=== PATIENT | female | born 1960 | race Caucasian/White ===

== ENCOUNTER 2019-07-09 12:08 | Outpatient (CLI) | payer OTHER, SELFPAY ==
--- NOTE | ~2019-07-09 | MM_ITS ---
EXAMINATION: MM screening [facility] BI w anita HISTORY: Screening mammogram TECHNIQUE: Craniocaudal and mediolateral oblique 3-D tomosynthesis images were obtained and synthetic 2-D images were generated. CAD analysis was submitted and interpreted. COMPARISON: 04/04/2018, 12/10/2016, 01/24/2015 BREAST PARENCHYMAL COMPOSITION: There are scattered areas of fibroglandular density. FINDINGS: Focal asymmetry in the anterior third of the left breast is stable appearance on multiple p rior examinations. There is no evidence of suspicious mass, calcification, or architectural distortio n to suggest malignancy in either breast. There has been no suspicious interval change. IMPRESSION: 1. No mammographic evidence of malignancy. 2. Recommend routine screening mammography in one year. BI-RADS Category 2: Benign finding(s). Reviewed, dictated and finalized at location A. SEWER
== END 2019-07-09 12:09 | disposition home or self-care (01) ==
PROVIDERS: PCP Internal Medicine; Visit Provider Internal Medicine
DX: Z12.31 Encounter for screening mammogram for malignant neoplasm of breast (principal); R01.1 Cardiac murmur, unspecified
CPT/HCPCS: 77063; 77067; 93306

== ENCOUNTER 2019-11-16 16:14 | Outpatient (CLI) | payer OTHER, SELFPAY ==
--- NOTE | ~2019-11-16 | XR_ITS ---
EXAMINATION: XR chest 2V DATE: 11/16/2019 16:31 INDICATION: Clavicular lymphadenopathy TECHNIQUE: frontal and lateral views of the chest were obtained. COMPARISON: Chest radiograph dated 12/16/2017 FINDINGS: The lungs are clear with no focal airspace opacities, pulmonary edema, pleural effusion or pneumothor ax. The cardiomediastinal silhouette is normal. Mild to moderate thoracic and moderate to severe lumb ar spondylosis. There are bridging osteophytes at multiple levels in the spine, consistent with diffu se idiopathic skeletal hyperostosis (DISH). IMPRESSION: 1. No acute cardiopulmonary disease. Reviewed, dictated and finalized at location A.
[2019-11-16 16:29] LABS: Basophils Absolute Auto 0.05 K/mm3 (0.00-0.10); Basophils Percent Auto 0.6 % (0.0-1.0); Eosinophils Percent Auto 2.5 % (1.0-6.0); Hematocrit 41.5 % (35.0-49.0); Hemoglobin 13.8 g/dL (12.0-15.0); Immature Granulocyte Absolute 0.02 K/mm3 (0.00-0.00); Immature Granulocyte Percent A 0.3 % (0.0-0.0); Lymphocytes Absolute Auto 2.87 K/mm3 (1.10-4.50); Lymphocytes Percent Auto 36.4 % (18.0-42.0); Mean Corpuscular HGB Conc 33.3 g/dL (32.0-36.0); Mean Corpuscular Volume 81.1 fL (78.0-102.0); Monocytes Absolute Auto 0.59 K/mm3 (0.10-0.90); Monocytes Percent Auto 7.5 % (2.0-11.0); Neutrophils Absolute Auto 4.2 K/mm3 (1.7-7.2); Neutrophils Percent Auto 52.7 % (50.0-70.0); Platelet Count Result 339 K/mm3 (150-420); Red Blood Count 5.12 M/mm3 (4.20-5.40); Red Cell Distribution Width 13.7 % (11.6-14.4); White Blood Count 7.9 K/mm3 (4.8-10.8)
[2019-11-16 17:26] LABS: Alanine Aminotransferase 28 U/L (14-59); Alkaline Phosphatase 71 U/L (46-116); Anion Gap 10.2 mmol/L (7-16); Aspartate Amino Transferase 21 U/L (15-37); Bilirubin,Total 0.4 mg/dL (0.00-1.00); Blood Urea Nitrogen 13 mg/dL (7-18); Calcium 9.5 mg/dL (8.5-10.1); Carbon Dioxide 34 mmol/L (21-32); Chloride 96 mmol/L (98-108); Estimated Glomerular Filt Rate > 60; Free T4 Free Thyroxine 1.54 ng/dL (0.76-1.46); Glucose 99 mg/dL (70-99); Lactate Dehydrogenase 235 U/L (81-234); Osmolality Calculated 282 mOsm/kg (285-295); Potassium 4.2 mmol/L (3.5-5.1); Sodium 136 mmol/L (136-145); Thyroid Stimulating Hormone 3.85 uIU/mL (0.36-3.74); Total Protein 7.4 g/dL (6.4-8.2)
[2019-11-16 17:27] LABS: Erythrocyte Sedimentation Rate 18 mm/hr (0-20)
[2019-11-16 17:28] LABS: CRP < 0.2 mg/dL (0.0-0.9)
== END 2019-11-16 16:15 | disposition home or self-care (01) ==
PROVIDERS: PCP Internal Medicine; Visit Provider Internal Medicine
DX: I88.9 Nonspecific lymphadenitis, unspecified (principal); L03.811 Cellulitis of head [any part, except face]; E03.9 Hypothyroidism, unspecified
CPT/HCPCS: 36415; 71046; 80053; 83615; 84439; 84443; 85025; 85652; 86140

== ENCOUNTER 2019-11-18 10:51 | Outpatient (CLI) | payer OTHER, SELFPAY ==
--- NOTE | ~2019-11-18 | US_ITS ---
EXAMINATION: US soft tissue head and neck DATE: 11/18/2019 11:52 INDICATION: Enlarged lymph nodes nodes at the left neck TECHNIQUE: Multiple grayscale and Doppler ultrasound images of the region of concern at the left neck were obtained. COMPARISON: None FINDINGS: There are multiple prominent hypoechoic left posterior cervical triangle lymph nodes with central fat ty leti at the mid, lateral to posterior left neck. The 3 largest measures 1.9 x 0.5 x 1.3 cm, 1.4 x 0.6 cm and 1.4 x 0.7 cm. IMPRESSION: 1. Mildly prominent but still normal-sized likely reactive lymph nodes in the left posterior cervical triangle. Reviewed, dictated and finalized at location D. IMPRESSION: 1. Mildly prominent but still normal-sized likely reactive lymph nodes in the l eft posterior cervical triangle.
== END 2019-11-18 10:52 | disposition home or self-care (01) ==
PROVIDERS: PCP Internal Medicine; Visit Provider Internal Medicine
DX: I88.9 Nonspecific lymphadenitis, unspecified (principal); E03.9 Hypothyroidism, unspecified; L03.811 Cellulitis of head [any part, except face]
CPT/HCPCS: 76536

== ENCOUNTER 2020-04-11 09:09 | Outpatient (CLI) | payer MEDICARE, SELFPAY ==
[2020-04-11 09:31] LABS: Basophils Absolute Auto 0.05 K/mm3 (0.00-0.10); Basophils Percent Auto 0.8 % (0.0-1.0); Eosinophils Absolute Auto 0.17 K/mm3 (0.02-0.50); Eosinophils Percent Auto 2.7 % (1.0-6.0); Hematocrit 43.6 % (35.0-49.0); Hemoglobin 14.2 g/dL (12.0-15.0); Immature Granulocyte Absolute 0.02 K/mm3 (0.00-0.00); Immature Granulocyte Percent A 0.3 % (0.0-0.0); Lymphocytes Absolute Auto 2.09 K/mm3 (1.10-4.50); Lymphocytes Percent Auto 33.3 % (18.0-42.0); Mean Corpuscular HGB Conc 32.6 g/dL (32.0-36.0); Mean Corpuscular Hemoglobin 27.3 pg (27.0-31.0); Mean Corpuscular Volume 83.7 fL (78.0-102.0); Monocytes Absolute Auto 0.53 K/mm3 (0.10-0.90); Monocytes Percent Auto 8.5 % (2.0-11.0); Neutrophils Absolute Auto 3.4 K/mm3 (1.7-7.2); Neutrophils Percent Auto 54.4 % (50.0-70.0); Platelet Count Result 364 K/mm3 (150-420); Red Blood Count 5.21 M/mm3 (4.20-5.40); Red Cell Distribution Width 13.2 % (11.6-14.4); White Blood Count 6.3 K/mm3 (4.8-10.8)
[2020-04-11 09:32] LABS: Add Urine Microscopic? NO; Appearance Urine Clear (Clear); Bilirubin Urine Negative (Negative); Blood Urine Negative (Negative); Color Urine Yellow (Yellow); Glucose Urine UA Negative (Negative); Ketones Urine Negative (Negative); Leukocyte Esterase Ur Negative LEU/UL (Negative); Nitrate Urine Negative (Negative); Protein Urine Negative (Negative); Urobilinogen Urine 0.2 mg/dL (0.2-1.0); pH Urine 7.5 (5.0-8.0)
[2020-04-11 10:04] LABS: Hemoglobin A1C 6.1 % (<5.7)
[2020-04-11 10:41] LABS: Alanine Aminotransferase 33 U/L (14-59); Alkaline Phosphatase 72 U/L (46-116); Anion Gap 8 mmol/L (8-16); Aspartate Amino Transferase 22 U/L (15-37); Bilirubin,Total 0.5 mg/dL (0.00-1.00); Blood Urea Nitrogen 18 mg/dL (7-18); Calcium 9.5 mg/dL (8.5-10.1); Carbon Dioxide 33 mmol/L (21-32); Chloride 99 mmol/L (98-108); Cholesterol 221 mg/dL (0-200); Creatine Kinase 126 U/L (26-192); Estimated Glomerular Filt Rate > 60; Ferritin 53 ng/mL (8-252); Free T4 Free Thyroxine 0.93 ng/dL (0.76-1.46); Glucose 105 mg/dL (70-99); HDL Direct 39 mg/dL (40-60); Iron 72 ug/dL (50-170); LDL Cholesterol Calculated 130 mg/dL (<130); Osmolality Calculated 291 mOsm/kg (285-295); Percent Iron Saturation 18 % (12-57); Potassium 4.3 mmol/L (3.5-5.1); Sodium 140 mmol/L (136-145); Thyroid Stimulating Hormone 4.13 uIU/mL (0.36-3.74); Total Protein 7.4 g/dL (6.4-8.2); Triglycerides 262 mg/dL (0-150)
== END 2020-04-11 09:10 | disposition home or self-care (01) ==
LOC: CHSLAB 09:12
PROVIDERS: PCP Internal Medicine; Visit Provider Internal Medicine
DX: R73.01 Impaired fasting glucose (principal); D50.9 Iron deficiency anemia, unspecified; E03.9 Hypothyroidism, unspecified; I10 Essential (primary) hypertension
CPT/HCPCS: 36415; 80053; 80061; 81003; 82550; 82728; 83036; 83540; 83550; 84439; 84443; 85025

== ENCOUNTER 2020-04-20 16:11 | Outpatient (CLI) | payer MEDICARE, SELFPAY ==
--- NOTE | ~2020-04-20 | XR_ITS ---
EXAMINATION: XR hip LT min 2V DATE: 04/20/2020 16:36 INDICATION: Left hip pain TECHNIQUE: Anteroposterior and frog-leg lateral views of the left hip were obtained. COMPARISON: 02/18/2017 FINDINGS: Alignment is normal. No fracture or suspected avascular necrosis. Joint spaces are normal. Soft tissu es are unremarkable. IMPRESSION: 1. Negative left hip radiographs. Reviewed, dictated and finalized at location H. RAFT METALSMITH
== END 2020-04-20 16:12 | disposition home or self-care (01) ==
LOC: CHSLAB 16:13
PROVIDERS: PCP Internal Medicine; Visit Provider Internal Medicine
DX: M25.552 Pain in left hip (principal)
CPT/HCPCS: 73502

== ENCOUNTER 2020-04-23 07:38 | Outpatient (CLI) | payer MEDICARE, OTHER, SELFPAY ==
--- NOTE | ~2020-04-23 | MR_ITS ---
EXAMINATION: MR hip LT wo con DATE: 04/23/2020 08:45 INDICATION: Left hip pain TECHNIQUE: Magnetic resonance imaging (MRI) of the left hip was performed without intravenous contra st. Sequences included full-field axial PD-weighted FS FSE and T1-weighted FSE, coronal of the pelvis with PD-weighted FS FSE, small field of view of the left hip with axial PD-weighted FS FSE, sagitta l PD-weighted FS FSE and coronal PD weighted FS FSE. Additional radial T1-weighted FGR oriented ortho gonal to the acetabular rim were obtained for evaluation of the labrum. COMPARISON: None FINDINGS: Bones/labrum/cartilage: Prominent metallic magnetic field artifact at the left hip and proximal femur consistent with a right total hip arthroplasty. This obscures or distorts the immediately surrounding bone and soft tissues. Mild lumbar dextrocurvature with moderate to severe spondylosis. Normal marrow signal throughout wit h no reactive edema, fracture or pathologic marrow replacing process. There is severe degenerative te aring of the anterosuperior the superolateral left acetabular labrum which appears thickened with pro minent amorphous increased signal. Left hip joint space is relatively preserved however there is a re gion of chondral fissuring with mild underlying subarticular cystic change at the anterosuperior left acetabulum. Fluid: No left hip joint effusion or other abnormal fluid collections. Soft tissues: Normal and symmetric muscle bulk and signal in the pelvis and visualized proximal thighs. There is sc arring posterolateral to the right hip likely related to placement of the arthroplasty. There is ananda a surrounding the partial tear without significant retraction of the pubic origin of the left abducto r longus tendon. The left iliopsoas tendon is normal. The right iliopsoas tendon is obscured by artif act. Minimal fluid at the left ischial tuberosity origin of the normal proximal left hamstring tendon s consistent with mild ischial bursitis. The right proximal hamstring tendons also appear normal asse ssment for fluid signal is limited by the adjacent artifact. Mild tendinopathy without discrete tear at the greater trochanteric insertion of the left gluteus minimus and medius tendons with minimal ass ociated bursitis. Small fat-containing umbilical hernia. Limited evaluation of visceral organs of the pelvis is unremarkable. No pathologically enlarged pelvic/inguinal lymphadenopathy. IMPRESSION: 1. Partial tear at the pubic origin of the left abductor longus muscle with surrounding edema. 2. 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 3. Right total hip arthroplasty which obscures the region of the right hip and proximal femur. 4. Mild left ischial bursitis. 5. Minimal bursitis at the insertion of the left gluteus medius and minimus tendons both which demons trate mild tendinopathy without discrete tear. 6. Mild lumbar dextroscoliosis with severe spondylosis. Reviewed, dictated and finalized at location H. ASTIC TEACHER IMPRESSION: 1. Partial tear at the pubic origin of the left abductor longus muscle with geovanna rounding edema. 2. 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 3. Right total hip arthroplasty which obscures the region of the right hip and proximal femur. 4. Mild left ischial bursitis. 5. Minimal bursitis at the insertion of the left gluteus medius and minimus ten dons both which demonstrate mild tendinopathy without discrete tear. 6. Mild lumbar dextroscoliosis with severe spondylosis.
== END 2020-04-23 07:39 | disposition home or self-care (01) ==
LOC: CHSIMG 07:40
PROVIDERS: PCP Internal Medicine; Visit Provider Internal Medicine
DX: M25.552 Pain in left hip (principal)
CPT/HCPCS: 73721

== ENCOUNTER 2020-10-19 08:48 | Outpatient (CLI) | payer MEDICARE, SELFPAY ==
[2020-10-19 09:00] LABS: Basophils Absolute Auto 0.09 K/mm3 (0.00-0.10); Basophils Percent Auto 1.2 % (0.0-1.0); Eosinophils Absolute Auto 0.22 K/mm3 (0.02-0.50); Eosinophils Percent Auto 2.9 % (1.0-6.0); Hemoglobin 14.4 g/dL (12.0-15.0); Immature Granulocyte Absolute 0.02 K/mm3 (0.00-0.00); Immature Granulocyte Percent A 0.3 % (0.0-0.0); Lymphocytes Absolute Auto 2.65 K/mm3 (1.10-4.50); Lymphocytes Percent Auto 35.3 % (18.0-42.0); Mean Corpuscular HGB Conc 33.5 g/dL (32.0-36.0); Mean Corpuscular Hemoglobin 27.3 pg (27.0-31.0); Mean Corpuscular Volume 81.4 fL (78.0-102.0); Mean Platelet Volume 8.5 fl (9.2-11.8); Monocytes Absolute Auto 0.67 K/mm3 (0.10-0.90); Monocytes Percent Auto 8.9 % (2.0-11.0); Neutrophils Absolute Auto 3.9 K/mm3 (1.7-7.2); Neutrophils Percent Auto 51.4 % (50.0-70.0); Platelet Count Result 346 K/mm3 (150-420); Red Blood Count 5.28 M/mm3 (4.20-5.40); Red Cell Distribution Width 13.5 % (11.6-14.4); White Blood Count 7.5 K/mm3 (4.8-10.8)
[2020-10-19 09:14] LABS: Add Urine Microscopic? NO; Appearance Urine Clear (Clear); Bilirubin Urine Negative (Negative); Blood Urine Negative (Negative); Color Urine Yellow (Yellow); Glucose Urine UA Negative (Negative); Ketones Urine Negative (Negative); Leukocyte Esterase Ur Negative (Negative); Nitrate Urine Negative (Negative); Protein Urine Negative (Negative); Urobilinogen Urine 0.2 mg/dL (0.2-1.0)
[2020-10-19 09:23] LABS: Hemoglobin A1C 6.1 % (<5.7)
[2020-10-19 09:34] LABS: Creatinine Urine 241.63 mg/dL (40-278); MALB Creatinine Ratio 5.3 mg/g (0-30); Microalbumin Urine Random < 13.0 mg/L
[2020-10-19 10:10] LABS: Alanine Aminotransferase 34 U/L (14-59); Albumin Level 3.9 g/dL (3.4-5.0); Alkaline Phosphatase 75 U/L (46-116); Anion Gap 7 mmol/L (8-16); Aspartate Amino Transferase 18 U/L (15-37); Bilirubin,Total 0.6 mg/dL (0.00-1.00); Blood Urea Nitrogen 15 mg/dL (7-18); Calcium 9.8 mg/dL (8.5-10.1); Carbon Dioxide 33 mmol/L (21-32); Chloride 98 mmol/L (98-108); Cholesterol 225 mg/dL (0-200); Creatine Kinase 118 U/L (26-192); Estimated Glomerular Filt Rate > 60; Ferritin 81 ng/mL (8-252); Free T3 2.95 pg/mL (2.18-3.98); Free T4 Free Thyroxine 1.07 ng/dL (0.76-1.46); Glucose 123 mg/dL (70-99); HDL Direct 40 mg/dL (40-60); Iron 62 ug/dL (50-170); LDL Cholesterol Calculated 125 mg/dL (<130); Osmolality Calculated 287 mOsm/kg (285-295); Percent Iron Saturation 16 % (12-57); Potassium 4.2 mmol/L (3.5-5.1); Sodium 138 mmol/L (136-145); Thyroid Stimulating Hormone 2.05 uIU/mL (0.36-3.74); Total Protein 7.5 g/dL (6.4-8.2); Triglycerides 302 mg/dL (0-150)
== END 2020-10-19 08:49 | disposition home or self-care (01) ==
LOC: CHSLAB 08:50
PROVIDERS: PCP Internal Medicine; Visit Provider Internal Medicine
DX: E03.4 Atrophy of thyroid (acquired) (principal); I10 Essential (primary) hypertension; E78.2 Mixed hyperlipidemia; R73.01 Impaired fasting glucose; D50.9 Iron deficiency anemia, unspecified
CPT/HCPCS: 36415; 80053; 80061; 81003; 82043; 82550; 82728; 83036; 83540; 83550; 84439; 84443; 84481; 85025

== ENCOUNTER 2021-05-04 09:10 | Outpatient (CLI) | payer MEDICARE, SELFPAY ==
[2021-05-04 09:31] LABS: Basophils Absolute Auto 0.08 K/mm3 (0.00-0.10); Basophils Percent Auto 1.2 % (0.0-1.0); Eosinophils Absolute Auto 0.22 K/mm3 (0.02-0.50); Eosinophils Percent Auto 3.3 % (1.0-6.0); Hematocrit 43.2 % (35.0-49.0); Hemoglobin 14.1 g/dL (12.0-15.0); Immature Granulocyte Absolute 0.02 K/mm3 (0.00-0.00); Immature Granulocyte Percent A 0.3 % (0.0-0.0); Lymphocytes Absolute Auto 2.15 K/mm3 (1.10-4.50); Lymphocytes Percent Auto 32.6 % (18.0-42.0); Mean Corpuscular HGB Conc 32.6 g/dL (32.0-36.0); Mean Corpuscular Hemoglobin 27.2 pg (27.0-31.0); Mean Corpuscular Volume 83.2 fL (78.0-102.0); Mean Platelet Volume 8.9 fl (9.2-11.8); Monocytes Absolute Auto 0.49 K/mm3 (0.10-0.90); Monocytes Percent Auto 7.4 % (2.0-11.0); Neutrophils Absolute Auto 3.6 K/mm3 (1.7-7.2); Neutrophils Percent Auto 55.2 % (50.0-70.0); Platelet Count Result 369 K/mm3 (150-420); Red Blood Count 5.19 M/mm3 (4.20-5.40); Red Cell Distribution Width 13.3 % (11.6-14.4); White Blood Count 6.6 K/mm3 (4.8-10.8)
[2021-05-04 10:08] LABS: Add Urine Microscopic? NO; Appearance Urine Clear (Clear); Bilirubin Urine Negative (Negative); Blood Urine Negative (Negative); Color Urine Yellow (Yellow); Glucose Urine UA Negative (Negative); Ketones Urine Negative (Negative); Leukocyte Esterase Ur Negative (Negative); Nitrate Urine Negative (Negative); Protein Urine Negative (Negative); Specific Grav Ur 1.015 (1.010-1.020); Urobilinogen Urine 0.2 mg/dL (0.2-1.0)
[2021-05-04 10:11] LABS: Hemoglobin A1C 6.5 % (<5.7)
[2021-05-04 10:40] LABS: Alanine Aminotransferase 36 U/L (14-59); Albumin Level 3.9 g/dL (3.4-5.0); Alkaline Phosphatase 78 U/L (46-116); Anion Gap 9 mmol/L (8-16); Aspartate Amino Transferase 16 U/L (15-37); Bilirubin,Total 0.4 mg/dL (0.00-1.00); Blood Urea Nitrogen 17 mg/dL (7-18); Calcium 9.8 mg/dL (8.5-10.1); Carbon Dioxide 31 mmol/L (21-32); Chloride 99 mmol/L (98-108); Cholesterol 224 mg/dL (0-200); Creatine Kinase 104 U/L (26-192); Estimated Glomerular Filt Rate > 60; Free T3 3.07 pg/mL (2.18-3.98); Free T4 Free Thyroxine 0.92 ng/dL (0.76-1.46); Glucose 123 mg/dL (70-99); HDL Direct 36 mg/dL (40-60); LDL Cholesterol Calculated 129 mg/dL (<130); Osmolality Calculated 290 mOsm/kg (285-295); Potassium 4.6 mmol/L (3.5-5.1); Sodium 139 mmol/L (136-145); Thyroid Stimulating Hormone 3.48 uIU/mL (0.36-3.74); Total Protein 7.5 g/dL (6.4-8.2); Triglycerides 297 mg/dL (0-150)
== END 2021-05-04 09:11 | disposition home or self-care (01) ==
LOC: CHSLAB 09:12
PROVIDERS: PCP Internal Medicine; Visit Provider Internal Medicine
DX: E03.4 Atrophy of thyroid (acquired) (principal); E78.2 Mixed hyperlipidemia; R73.01 Impaired fasting glucose; M25.50 Pain in unspecified joint; I10 Essential (primary) hypertension
CPT/HCPCS: 36415; 80053; 80061; 81003; 82550; 83036; 84439; 84443; 84481; 85025

== ENCOUNTER 2021-06-20 08:27 | Outpatient (CLI) | payer MEDICARE, SELFPAY ==
--- NOTE | ~2021-06-20 | US_ITS ---
EXAMINATION: US soft tissue abdomen DATE: 06/20/2021 09:10 INDICATION: Umbilical hernia/mass. TECHNIQUE: Multiple grayscale and Doppler ultrasound images of the abdominal region of concern at the umbilicus were obtained. COMPARISON: None FINDINGS: Small umbilical hernia with hernia sac measuring 3.5 x 3.1 x 1.5 cm and which extends through a 1.5 c m diameter orifice. No evident peristalsis or gas within the hernia sac to suggest herniated bowel. IMPRESSION: 1. Small likely fat-containing umbilical hernia with no evident herniated bowel. Reviewed, dictated and finalized at location A. GATOR HUNTER IMPRESSION: 1. Small likely fat-containing umbilical hernia with no evident herniated bowel .
--- NOTE | ~2021-06-20 | MM_ITS ---
EXAMINATION: MM screening [facility] BI w [facility] HISTORY: Screening TECHNIQUE: Craniocaudal and mediolateral oblique 3-D tomosynthesis images were obtained and synthetic 2-D images were generated. CAD analysis was submitted and interpreted. COMPARISON: Comparison to multiple prior studies sequentially, with oldest reviewed study dated 12/2011. BREAST PARENCHYMAL COMPOSITION: Breast composed of scattered areas of fibroglandular density. FINDINGS: There is possible architectural distortion in the subareolar location of the left breast. T he right breast is stable without evidence for malignancy. IMPRESSION: 1. Possible architectural distortion subareolar location of the left breast. 2. Additional mammographic views and possible breast ultrasound are recommended. BI-RADS Category 0: Incomplete: Needs additional imaging evaluation. Reviewed, dictated and finalized at location A. E TOOLSETTER IMPRESSION: 1. Possible architectural distortion subareolar location of the left breast. 2. Additional mammographic views and possible breast ultrasound are recommended . BI-RADS Category 0: Incomplete: Needs additional imaging evaluation.
== END 2021-06-20 08:28 | disposition home or self-care (01) ==
LOC: CHSIMG 08:30
PROVIDERS: PCP Internal Medicine; Visit Provider Nurse Practitioner Family
DX: K42.9 Umbilical hernia without obstruction or gangrene (principal); R19.05 Periumbilic swelling, mass or lump; Z12.31 Encounter for screening mammogram for malignant neoplasm of breast
CPT/HCPCS: 76705; 77063; 77067

== ENCOUNTER 2021-06-26 09:55 | Outpatient (CLI) | payer MEDICARE, SELFPAY ==
--- NOTE | ~2021-06-26 | MMUS_ITS ---
EXAMINATION: MM diagnostic [facility] LT w anita, US breast LT limited HISTORY: Possible architectural distortion of the left breast on screening mammogram TECHNIQUE: Additional 3-D tomosynthesis images of the left breast were performed and synthetic 2-D im ages were generated. CAD analysis was submitted and interpreted. High resolution limited left breast ultrasound was performed. COMPARISON: Prior mammograms dating back to 01/24/2015 BREAST PARENCHYMAL COMPOSITION: There are scattered areas of fibroglandular density. FINDINGS: MAMMOGRAPHIC FINDINGS: There is a return to baseline fibroglandular appearance with spot compression of the left breast in t he area questioned on screening mammogram. No suspicious mass, calcification, or architectural distor tion are identified. ULTRASOUND: There is no evidence of focal abnormal solid or cystic mass in the vicinity of the mammographic findi ng in question. IMPRESSION: 1. No mammographic or sonographic evidence of malignancy. 2. Recommend routine screening mammography in one year. BI-RADS Category 1: Negative Reviewed, dictated and finalized at location A. ENT MINISTRY PASTOR IMPRESSION: 1. No mammographic or sonographic evidence of malignancy. 2. Recommend routine screening mammography in one year. BI-RADS Category 1: Negative
== END 2021-06-26 09:56 | disposition home or self-care (01) ==
LOC: CHSIMG 09:57
PROVIDERS: PCP Internal Medicine; Visit Provider Internal Medicine
DX: R92.8 Other abnormal and inconclusive findings on diagnostic imaging of breast (principal)
CPT/HCPCS: 76642; 77061; 77065; G0279

== ENCOUNTER 2021-07-03 11:48 | Outpatient (CLI) | payer MEDICARE, SELFPAY ==
[2021-07-03 12:34] LABS: SARS-CoV-2 Ag Negative (Negative)
[2021-07-03 13:15] LABS: SARS-CoV-2 RNA PCR Positive (Negative)
== END 2021-07-03 11:49 | disposition home or self-care (01) ==
LOC: CHSLAB 11:51
PROVIDERS: PCP Internal Medicine; Visit Provider Nurse Practitioner Family
DX: U07.1 COVID-19 (principal); J06.9 Acute upper respiratory infection, unspecified; J02.9 Acute pharyngitis, unspecified
CPT/HCPCS: 87426; C9803; U0003; U0005

== ENCOUNTER 2021-11-29 08:31 | Outpatient (CLI) | payer MEDICARE, SELFPAY ==
[2021-11-29 08:49] LABS: Basophils Absolute Auto 0.08 K/mm3 (0.00-0.10); Basophils Percent Auto 1.1 % (0.0-1.0); Eosinophils Absolute Auto 0.24 K/mm3 (0.02-0.50); Eosinophils Percent Auto 3.4 % (1.0-6.0); Hematocrit 42.3 % (35.0-49.0); Hemoglobin 13.9 g/dL (12.0-15.0); Immature Granulocyte Absolute 0.01 K/mm3 (0.00-0.00); Immature Granulocyte Percent A 0.1 % (0.0-0.0); Lymphocytes Percent Auto 38.2 % (18.0-42.0); Mean Corpuscular HGB Conc 32.9 g/dL (32.0-36.0); Mean Corpuscular Hemoglobin 27.7 pg (27.0-31.0); Mean Corpuscular Volume 84.4 fL (78.0-102.0); Mean Platelet Volume 8.6 fl (9.2-11.8); Monocytes Absolute Auto 0.54 K/mm3 (0.10-0.90); Monocytes Percent Auto 7.6 % (2.0-11.0); Neutrophils Absolute Auto 3.5 K/mm3 (1.7-7.2); Neutrophils Percent Auto 49.6 % (50.0-70.0); Platelet Count Result 377 K/mm3 (150-420); Red Blood Count 5.01 M/mm3 (4.20-5.40); Red Cell Distribution Width 12.9 % (11.6-14.4); White Blood Count 7.1 K/mm3 (4.8-10.8)
[2021-11-29 08:51] LABS: Add Urine Microscopic? NO; Appearance Urine Clear (Clear); Bilirubin Urine Negative (Negative); Blood Urine Negative (Negative); Color Urine Yellow (Yellow); Glucose Urine UA Negative (Negative); Ketones Urine Negative (Negative); Leukocyte Esterase Ur Negative (Negative); Nitrate Urine Negative (Negative); Protein Urine Negative (Negative); Urobilinogen Urine 0.2 mg/dL (0.2-1.0)
[2021-11-29 09:32] LABS: Hemoglobin A1C 6.2 % (<5.7)
[2021-11-29 09:33] LABS: Creatinine Urine 166.71 mg/dL (40-278); MALB Creatinine Ratio 7.7 mg/g (0-30); Microalbumin Urine Random < 13.0 mg/L
[2021-11-29 09:46] LABS: Alanine Aminotransferase 29 U/L (14-59); Albumin Level 3.9 g/dL (3.4-5.0); Alkaline Phosphatase 82 U/L (46-116); Anion Gap 8 mmol/L (8-16); Aspartate Amino Transferase 15 U/L (15-37); Bilirubin,Total 0.5 mg/dL (0.00-1.00); Blood Urea Nitrogen 16 mg/dL (7-18); Calcium 9.3 mg/dL (8.5-10.1); Carbon Dioxide 32 mmol/L (21-32); Chloride 98 mmol/L (98-108); Cholesterol 197 mg/dL (0-200); Creatine Kinase 93 U/L (26-192); Estimated Glomerular Filt Rate 60; Free T3 2.82 pg/mL (2.18-3.98); Free T4 Free Thyroxine 1.12 ng/dL (0.76-1.46); Glucose 133 mg/dL (70-99); HDL Direct 43 mg/dL (40-60); LDL Cholesterol Calculated 102 mg/dL (<130); Osmolality Calculated 289 mOsm/kg (285-295); Potassium 4.2 mmol/L (3.5-5.1); Sodium 138 mmol/L (136-145); Thyroid Stimulating Hormone 1.95 uIU/mL (0.36-3.74); Total Protein 7.5 g/dL (6.4-8.2); Triglycerides 261 mg/dL (0-150)
== END 2021-11-29 08:32 | disposition home or self-care (01) ==
LOC: CHSLAB 08:33
PROVIDERS: PCP Internal Medicine; Visit Provider Internal Medicine
DX: E78.2 Mixed hyperlipidemia (principal); I10 Essential (primary) hypertension; E03.4 Atrophy of thyroid (acquired); R73.01 Impaired fasting glucose; R53.82 Chronic fatigue, unspecified
CPT/HCPCS: 36415; 80053; 80061; 81003; 82043; 82550; 83036; 84439; 84443; 84481; 85025

== ENCOUNTER 2022-02-22 00:56 | Day surgery (SDC) | payer MEDICARE, SELFPAY ==
[2022-02-13 09:36] VITALS: BMI 41.2
[2022-02-22 07:50] VITALS: BP 163/90; PULSE 104; RESP 18; TEMP 36; O2SAT 98
[2022-02-22] MEDS: LACTATED RINGERS 1,000 ML 150 ML IV CONT (08:04)
--- NOTE | 2022-02-22 08:20 | P.PNAN_ITS ---
Anes - Initial Pre Proc Eval Procedure: Operation Date: 02/22/22 09:15 Proposed Procedures p Screening Colonoscopy - Tao Call DO Date/Time: 02/22/22 08:20 Surgeon: Tao Call DO Pre Op Diagnosis: neoplasm screening Patient Data Age: 61 Gender: F Height: 1.63 m Weight: 108.4 kg Last Vital Signs Temp 96.8 F L 02/22/22 07:50 Pulse 104 H 02/22/22 07:50 Resp 18 02/22/22 07:50 BP 163/90 H 02/22/22 07:50 Pulse Ox 98 02/22/22 07:50 O2 Del Method Room Air 02/22/22 07:50 Allergies Allergy/AdvReac Type Severity Reaction Status Date / Time ampicillin Allergy Severe HIVES Verified 02/22/22 07:42 Home Medications Medication Instructions Recorded Confirmed Type atorvastatin 40 mg tablet 40 mg PO DAILY 02/13/22 02/13/22 History duloxetine 60 mg capsule,delayed 60 mg PO DAILY 02/13/22 02/13/22 History release levothyroxine 200 mcg tablet 200 mcg PO DAILY 02/13/22 02/13/22 History metoprolol succinate 50 mg 50 mg PO DAILY 02/13/22 02/13/22 History tablet,extended release 24 hr omeprazole 20 mg capsule,delayed 20 mg PO DAILY 02/13/22 02/13/22 History release triamterene 37.5 1 tablet PO DAILY 02/13/22 02/13/22 History mg-hydrochlorothiazide 25 mg tablet Patient hx anesthesia problems: none Family hx anesthesia problems: none Results Review: All pre-operative results and documents have been reviewed as part of the pre- operative evaluation. [facility] Social History Social History Smoking status: Never smoker Alcohol intake: never Substance use: never Substance use type: does not use Living arrangements: with family Spiritual care concerns: No Anes - Eval Final PreProcedure Day of Procedure 02/22/22 08:20 Patient weight: morbidly obese Heart: regular rate and rhythm Lungs: clear to auscultation Airway: Mallampati scale class II Neurological: alert and oriented Last oral intake: >/= 8 hours ASA classification: III Emergent: no Anesthetic plan: proceed Anesthesia type and monitoring: general GIVS and standard monitoring Results Review: All pre-operative results and documents have been reviewed as part of the pre- operative evaluation. Informed Consent: The patient's anesthetic plan and its attendant risks and benefits were discussed with the patient/family/POA. Questions were solicited and answers provided to the satisfaction of the patient/family/POA.
--- NOTE | 2022-02-22 08:49 | PM.IMHP ---
H&P: HPI History of Present Illness Date/Time: 02/22/22 08:49 Chief Complaint: screening for colorectal cancer Narrative: this is a 61-year-old woman who presents for colonoscopy. Her last colonoscopy was more than 10 years ago. She did have a Cologuard test that was negative several years ago. She denies any hematochezia or melena. She denies any family history of colon cancer. Review of Systems Review of Systems: All systems reviewed & are unremarkable except as noted in HPI and below Constitutional: Constitutional: Denies chills, Denies fever(s), Denies headache(s) and Denies weight loss Eyes: Eyes: Denies change in vision ENT: Denies dizziness, Denies headache(s), Denies neck mass and Denies throat swelling Cardiovascular: Cardiovascular: Denies chest pain, Denies lightheadedness and Denies dyspnea Respiratory: Respiratory: Denies cough, Denies dyspnea and Denies wheezing Gastrointestinal: Gastrointestinal: Denies abdominal pain, Denies change in bowel habits, Denies nausea and Denies vomiting Genitourinary: Genitourinary: Denies hematuria and Denies dysuria Musculoskeletal: Musculoskeletal: Reports as per HPI Integumentary/Breasts: Skin/Breast: Reports as per HPI Neurologic: Denies dizziness and Denies headache(s) Allergic/Immunologic: Allergic/Immunologic: Denies throat swelling and Denies wheezing PMFSH Social History Social History Smoking status: Never smoker Alcohol intake: never Substance use: never Substance use type: does not use Living arrangements: with family Spiritual care concerns: No Meds Home Medications and Allergies Home Medications Medication Instructions Recorded Confirmed Type atorvastatin 40 mg tablet 40 mg PO DAILY 02/13/22 02/13/22 History duloxetine 60 mg capsule,delayed 60 mg PO DAILY 02/13/22 02/13/22 History release levothyroxine 200 mcg tablet 200 mcg PO DAILY 02/13/22 02/13/22 History metoprolol succinate 50 mg 50 mg PO DAILY 02/13/22 02/13/22 History tablet,extended release 24 hr omeprazole 20 mg capsule,delayed 20 mg PO DAILY 02/13/22 02/13/22 History release triamterene 37.5 1 tablet PO DAILY 02/13/22 02/13/22 History mg-hydrochlorothiazide 25 mg tablet Allergies Allergy/AdvReac Type Severity Reaction Status Date / Time ampicillin Allergy Severe HIVES Verified 02/22/22 07:42 Vital Signs Vital Signs - 24 hr 02/22/22 07:50 Temperature 36.0 C L Pulse Rate 104 H Respiratory Rate 18 Blood Pressure 163/90 H Pulse Oximetry 98 Oxygen Delivery Room Air Exam Const: General: no acute distress and alert Orientation/consciousness: patient oriented x3 HENMT: Head: normocephalic and atraumatic Ears: hearing grossly normal bilaterally General nose exam: Normal nares present Mouth: Yes Normal oral and palatal mucosa present Eyes: Periorbital: periorbital findings normal Sclera: sclerae normal EOM: EOMs intact bilaterally Neck: Neck: normal visual inspection, no lymphadenopathy and trachea midline Chest: Chest palpation & inspection: normal inspection of the chest Resp: Effort & Inspection: normal respiratory effort Auscultation: clear to auscultation bilaterally Cardio: Jugular venous distension: no JVD Rate: regular rate Rhythm: regular rhythm Heart sounds: S1 normal heart sound present and S2 normal heart sound present Peripheral pulses: Peripheral pulses 2+ throughout GI: Inspection: normal to inspection GI Palp: Yes Soft to palpation, No Tenderness to palpation present (GI), No Guarding due to palpation present (GI) and No Rebound tenderness present Percussion: Yes normal to percussion Auscultation: normal bowel sounds : General: Yes no CVA tenderness Back/Spine/Pelvis: Back: no CVA tenderness Neuro: General: patient oriented x3, no focal motor deficits and CN's II-XI intact bilaterally Cognition (Neuro): normal cognition Speech: normal speech Motor exam (neuro): 5/5 motor strength present thr
[2022-02-22 09:21] VITALS: BP 103/69; PULSE 82; RESP 20; O2SAT 98
[2022-02-22 09:31] VITALS: BP 121/83; PULSE 83; RESP 20; O2SAT 100
[2022-02-22 09:41] VITALS: BP 123/81; PULSE 88; RESP 20; O2SAT 100
== END 2022-02-22 09:51 | disposition home or self-care (01) ==
PROVIDERS: PCP Internal Medicine; Visit Provider Surgery
PROC: 0DJD8ZZ Inspection of Lower Intestinal Tract, Via Natural or Artificial Opening Endoscopic (ICD-10-PCS; CPT 45378; principal; 2022-02-22 09:15)
DX: Z12.11 Encounter for screening for malignant neoplasm of colon (principal); E03.9 Hypothyroidism, unspecified; E66.9 Obesity, unspecified; Z68.41 Body mass index [BMI] 40.0-44.9, adult
CPT/HCPCS: G0121; J2704; J7120

== ENCOUNTER 2022-04-03 09:45 | Outpatient (CLI) | payer MEDICARE, SELFPAY ==
--- NOTE | ~2022-04-03 | XR_ITS ---
EXAM: XR pelvis 1-2V DATE: 04/03/2022 10:31 HISTORY: acute LBP, fall 5 days ago, more RT sided into buttocks . COMPARISON: None available. FINDINGS: Incompletely visualized but uncomplicated appearing right total hip arthroplasty. Moderate left hip osteoarthritis. Scattered trochanteric and pelvic enthesopathy. Pelvic phleboliths Normal m ineralization. No fracture or dislocation. No lytic or blastic lesion. Partial left L5 sacralization. IMPRESSION: No acute osseous finding in the pelvis. Reviewed, dictated and finalized at location K.
--- NOTE | ~2022-04-03 | XR_ITS ---
EXAM: XR sacrum coccyx min 2V DATE: 04/03/2022 10:31 HISTORY: acute LBP, fall 5 days ago, more RT sided into buttocks . COMPARISON: None available. FINDINGS: Partially visualized right hip arthroplasty Normal mineralization. No fracture or dislocat ion. No lytic or blastic lesion. Degenerative change in the lumbar spine. Mild degenerative change in the bilateral SI joints and pubic symphysis. Moderate left hip osteoarthritis. No erosion or periost eal change. Soft tissues within normal limits. IMPRESSION: Mild degenerative change in the bilateral SI joints.. Reviewed, dictated and finalized at location K.
--- NOTE | ~2022-04-03 | XR_ITS ---
EXAM: XR lumbar spine 2-3V DATE: 04/03/2022 10:29 HISTORY: acute LBP, fall 5 days ago, more RT sided into buttocks . COMPARISON: 02/18/2017. FINDINGS: Partially visualized right hip arthroplasty hardware Mild lumbar scoliosis. 5 nonrib-bearin g lumbar-type vertebral bodies. Pedicles intact. Normal vertebral body alignment. Vertebral body heig hts preserved. Multilevel disc space narrowing and marginal osteophytosis, vacuum phenomenon at L2-3 and L4-5. Multilevel facet hypertrophy and sclerosis, with interspinous narrowing. No fracture or dis location. IMPRESSION: Multilevel severe degenerative disc disease and facet arthropathy. Reviewed, dictated and finalized at location K.
== END 2022-04-03 09:46 | disposition home or self-care (01) ==
LOC: CHSIMG 09:52
PROVIDERS: PCP Internal Medicine; Visit Provider Internal Medicine
DX: M54.50 Low back pain, unspecified (principal)
CPT/HCPCS: 72100; 72170; 72220

== ENCOUNTER 2022-06-12 08:33 | Outpatient (CLI) | payer MEDICARE, SELFPAY ==
[2022-06-12 08:51] LABS: Basophils Absolute Auto 0.07 K/mm3 (0.00-0.10); Basophils Percent Auto 1.1 % (0.0-1.0); Eosinophils Absolute Auto 0.22 K/mm3 (0.02-0.50); Eosinophils Percent Auto 3.3 % (1.0-6.0); Hematocrit 39.9 % (35.0-49.0); Hemoglobin 13.1 g/dL (12.0-15.0); Immature Granulocyte Absolute 0.02 K/mm3 (0.00-0.00); Immature Granulocyte Percent A 0.3 % (0.0-0.0); Lymphocytes Absolute Auto 2.66 K/mm3 (1.10-4.50); Mean Corpuscular HGB Conc 32.8 g/dL (32.0-36.0); Mean Corpuscular Hemoglobin 27.8 pg (27.0-31.0); Mean Corpuscular Volume 84.7 fL (78.0-102.0); Mean Platelet Volume 8.7 fl (9.2-11.8); Monocytes Absolute Auto 0.56 K/mm3 (0.10-0.90); Monocytes Percent Auto 8.4 % (2.0-11.0); Neutrophils Absolute Auto 3.1 K/mm3 (1.7-7.2); Neutrophils Percent Auto 46.9 % (50.0-70.0); Platelet Count Result 317 K/mm3 (150-420); Red Blood Count 4.71 M/mm3 (4.20-5.40); Red Cell Distribution Width 13.1 % (11.6-14.4); White Blood Count 6.7 K/mm3 (4.8-10.8)
[2022-06-12 09:16] LABS: Hemoglobin A1C 6.6 % (<5.7)
[2022-06-12 09:46] LABS: Alanine Aminotransferase 37 U/L (14-59); Alkaline Phosphatase 74 U/L (46-116); Anion Gap 8 mmol/L (8-16); Aspartate Amino Transferase 21 U/L (15-37); Bilirubin,Total 0.6 mg/dL (0.00-1.00); Blood Urea Nitrogen 17 mg/dL (7-18); Calcium 9.3 mg/dL (8.5-10.1); Carbon Dioxide 33 mmol/L (21-32); Chloride 95 mmol/L (98-108); Cholesterol 179 mg/dL (0-200); Creatine Kinase 115 U/L (26-192); Estimated Glomerular Filt Rate > 60; Free T3 3.19 pg/mL (2.18-3.98); Free T4 Free Thyroxine 0.99 ng/dL (0.76-1.46); Glucose 121 mg/dL (70-99); HDL Direct 40 mg/dL (40-60); LDL Cholesterol Calculated 83 mg/dL (<130); Osmolality Calculated 284 mOsm/kg (285-295); Potassium 4.5 mmol/L (3.5-5.1); Sodium 136 mmol/L (136-145); Thyroid Stimulating Hormone 3.46 uIU/mL (0.36-3.74); Total Protein 7.2 g/dL (6.4-8.2); Triglycerides 278 mg/dL (0-150)
[2022-06-12 12:32] LABS: Add Urine Microscopic? NO; Appearance Urine Clear (Clear); Bilirubin Urine Negative (Negative); Blood Urine Negative (Negative); Color Urine Light Yellow (Yellow); Glucose Urine UA Negative (Negative); Ketones Urine Negative (Negative); Leukocyte Esterase Ur Negative (Negative); Nitrate Urine Negative (Negative); Protein Urine Negative (Negative); Urobilinogen Urine 0.2 mg/dL (0.2-1.0)
[2022-06-12 12:41] LABS: Creatinine Urine 72.19 mg/dL (40-278); Microalbumin Urine Random < 13.0 mg/L
== END 2022-06-12 08:34 | disposition home or self-care (01) ==
PROVIDERS: PCP Internal Medicine; Visit Provider Internal Medicine
DX: I10 Essential (primary) hypertension (principal); E03.4 Atrophy of thyroid (acquired); R73.01 Impaired fasting glucose; E78.2 Mixed hyperlipidemia; R53.82 Chronic fatigue, unspecified
CPT/HCPCS: 36415; 80053; 80061; 81003; 82043; 82550; 83036; 84439; 84443; 84481; 85025

== ENCOUNTER 2022-07-05 17:00 | Outpatient (CLI) | payer MEDICARE, SELFPAY ==
--- NOTE | ~2022-07-05 | XR_ITS ---
EXAMINATION: XR_CERV2-3V_CR DATE: 07/05/2022 17:23 INDICATION: Chronic neck pain. TECHNIQUE: 5 views of cervical spine were obtained. COMPARISON: None. FINDINGS: There is 7 degrees levocurvature of cervicothoracic spine. Vertebral body heights are zana l. There is moderately decreased disc height at C5-C6 and mildly decreased disc height at C6-C7. At C 5-C6, there is severe bilateral uncovertebral joint osteoarthritis. The facet joints are unremarkable . There is mild central canal stenosis at C5-C6. No prevertebral soft tissue swelling. IMPRESSION: 1. Moderate cervical spondylosis, worst at C5-C6. Reviewed, dictated and finalized at location A. ONATION EQUIPMENT OPERATOR
== END 2022-07-05 17:01 | disposition home or self-care (01) ==
LOC: CHSIMG 17:02
PROVIDERS: PCP Internal Medicine; Visit Provider Internal Medicine
DX: M54.2 Cervicalgia (principal); M43.02 Spondylolysis, cervical region
CPT/HCPCS: 72040

== ENCOUNTER 2022-07-14 08:51 | Outpatient (CLI) | payer MEDICARE, SELFPAY ==
--- NOTE | ~2022-07-14 | MR_ITS ---
MRI of the cervical spine Clinical History: Radiculopathy Technique: Axial T2-weighted and gradient images, and sagittal T1-weighted, T2-weighted, and STIR lynne ges were acquired. Findings: There is no fracture or subluxation of cervical spine. Vertebral bodies maintain normal hei ght and alignment. No suspicious bone marrow signal abnormality seen. At C2-C3, C3-C4, C4-C5, there is no disc bulge or herniation. No spinal canal stenosis, cord compress ion, or neural foraminal narrowing at these levels. At C5-C6, there is mild disc bulge which minimally flattens the ventral cord. Bilateral neural forami na are preserved. At C6-C7, disc bulge is present, which mildly flattens the ventral cord. Bilateral neural foramina ar e preserved. Paravertebral soft tissues are unremarkable. Impression: Minimal flattening of the ventral cord at C5-C6 and C6-C7 related to disc bulges at these levels. Reviewed, dictated and finalized at location . NING MACHINE OPERATOR Impression: Minimal flattening of the ventral cord at C5-C6 and C6-C7 related to disc bulge s at these levels.
== END 2022-07-14 08:52 | disposition home or self-care (01) ==
LOC: CHSIMG 08:52
PROVIDERS: PCP Internal Medicine; Visit Provider Internal Medicine
DX: M54.12 Radiculopathy, cervical region (principal); M50.21 Other cervical disc displacement, high cervical region
CPT/HCPCS: 72141

== ENCOUNTER 2022-07-24 09:56 | Outpatient (RCR) | payer MEDICARE, SELFPAY ==
--- NOTE | 2022-07-24 11:23 | PTOPEVAL1 ---
Assessment and note entered by Ellie Ibrahim DPT Evaluation Information Assessment Status Evaluation Diagnosis neck pain Onset 07/17/22 Subjective Information Patient reports neck pain that started over a year ago. She thought pain was from her recliner so she got a new recliner and pain did not change. She has also tried different pillows. She reports that she does get a headache in the mornings but denies radiating pain. She does report that she has see a chiropractor in the past but relief was only for a week or so. Patient has difficulty with sleeping and sitting and chairs. Prior to a year ago she did not have back pain. She reports a hernia that is being repaired on August 08. Reported Pain Level Pain Score 4: Self Report Assessment PT Clinical Summary Patient is a 61 year old female who presents to PT with neck pain. Patient demonstrates increased tightness of B upper traps, hypomobility of C3-C7, and UE and cervical weakness impairing her ability to sleep and sit for long periods of time without increase in pain. Patient would benefit from skilled PT to address impairments and return to PLOF. Plan of Care Interventions Electrical Stimulation,Gait Training,Hot Pack/Cold Pack,Manual Therapy,Mechanical Traction,Neuro Re- education,Patient/Caregiver Educati,Therapeutic Activities,Therapeutic Exercise,Self-Care/Home Management PT Services Indicated Yes Treatment Frequency and 2x weekly for 10 visits Duration These treatments will address the objective and functional deficits as defined above. The patient will be advanced safely and appropriately in order for the patient to progress towards his/her prior level of function. Additional exercises will be introduced and as well as a comprehensive home exercise program upon discharge, if needed, ?to ensure carryover of functional gains achieved in the clinic. This treatment plan has been reviewed and agreement upon by the patient.
--- NOTE | 2022-09-04 15:12 | PTOPREEVAL ---
Assessment and note entered by Ellie Ibrahim DPT Evaluation Information Assessment Status Re-evaluation Diagnosis neck pain Onset 07/17/22 Subjective Information Patient reports her nck was feeling better prior to her hernia surgery but since then pain has returned. She reports that sitting and watching TV is really bothersome. Reported Pain Level Pain Score 4: Self Report Assessment PT Clinical Summary Patient returns to PT today following hernia surgery. She was making good progress piror to surgery but has returned to pre treatment pain levels. She continues to demonstrate decreased cervical ROM with increased pain and decreased UE ROM. She would benefit from continued skilled PT to address impairments and return to PLOF. Plan of Care Interventions Electrical Stimulation,Gait Training,Hot Pack/Cold Pack,Manual Therapy,Mechanical Traction,Neuro Re- education,Patient/Caregiver Educati,Therapeutic Activities,Therapeutic Exercise,Self-Care/Home Management PT Services Indicated Yes Treatment Frequency and 2x weekly for 10 visits Duration These treatments will address the objective and functional deficits as defined above. The patient will be advanced safely and appropriately in order for the patient to progress towards his/her prior level of function. Additional exercises will be introduced and as well as a comprehensive home exercise program upon discharge, if needed, ?to ensure carryover of functional gains achieved in the clinic. This treatment plan has been reviewed and agreement upon by the patient.
--- NOTE | 2022-09-25 13:10 | PTOPDC ---
Assessment and note entered by JT File, PT Evaluation Information Assessment Status Discharge Diagnosis neck pain Onset 07/17/22 Subjective Information patient reports she feels Good today. she reports she has had less pain and minimal headaches. she reports she feels better, and is ready for DC. Reported Pain Level Pain Score 1: Self Report Assessment PT Clinical Summary mrs. lyons presents to skilled PT today for her 10th skilled PT visit. she presents today with improved cervical ROM, improved cervical and UE strength, and decreased pain/headaches. she has met all but one goal for skilled PT. she will DC skillled PT today, and continue with HEP independent at home. Plan of Care PT Services Indicated Yes
== END 2022-09-25 15:18 | disposition home or self-care (01) ==
LOC: CHSPT 09:56
PROVIDERS: PCP Internal Medicine; Visit Provider Internal Medicine
DX: M54.2 Cervicalgia (principal)
CPT/HCPCS: 97014; 97110; 97140; 97161; G0283

== ENCOUNTER 2022-08-06 09:52 | Outpatient (CLI) | payer MEDICARE, SELFPAY ==
--- NOTE | 2022-08-06 10:03 | ECG_ITS ---
Measurements Intervals [place] Rate: 83 P: 6 WA: 140 QRS: -28 QRSD: 80 T: 22 QT: 355 QTc: 418 Interpretive Statements SINUS RHYTHM VOLTAGE CRITERIA FOR LVH POOR R WAVE PROGRESSION, ANTERIOR LEADS BORDERLINE ECG NO PREVIOUS ECG AVAILABLE FOR COMPARISON Electronically Signed On 08-06-2022 10:22:48 UNLOADING CHECKER by Clark Cervantes D.O.
== END 2022-08-06 09:53 | disposition home or self-care (01) ==
LOC: ANHSURGERY 09:56
PROVIDERS: PCP Internal Medicine; Visit Provider Surgery
DX: K42.0 Umbilical hernia with obstruction, without gangrene (principal); I10 Essential (primary) hypertension; Z01.818 Encounter for other preprocedural examination; R94.31 Abnormal electrocardiogram [ECG] [EKG]
CPT/HCPCS: 36415; 86850; 86900; 86901; 93005

== ENCOUNTER 2022-08-08 00:42 | Day surgery (SDC) | payer MEDICARE, SELFPAY ==
[2022-07-30 12:22] VITALS: BMI 41.2
--- NOTE | 2022-07-30 12:28 | PC.NURSE ---
Report to the Outpatient Waiting Room, entrance under the green pavilion located off [facility], at time 10:30 on date 08/08/22. Planned Procedure Time: 12:30. Time changes happen often and if your time is changed the preop area will call you the afternoon before. - You and your visitor will be asked to self-screen and do not enter if you have any COVID symptoms. - Only one visitor is requested with a max of two and NO children visitors are allowed at this time. - The patient visitor may be requested to leave or wait in car when not with patient due to distancing restrictions. - A mask is optional within the hospital at this time. Patients may have clear liquids (water, carbonated beverages, clear teas, apple juice) until 3 hours prior to surgery (9:30) with a maximum of 20 ounces. - No food from midnight until time of surgery Take the following medications with a SIP of water the morning of surgery: DULOXETINE, LEVOTHYROXINE, METOPROLOL DO NOT STOP ANY OF YOUR OTHER PRESCRIPTION MEDICATIONS PRIOR TO SURGERY EXCEPT THE FOLLOWING Medications to discontinue per physician: VITAMINS/SUPPLEMENTS Date to take last dose: 08/04/22 Please no make-up, nail sami, hairspray, perfume, deodorant, or body powder the day of surgery. No jewelry (including any body piercings) or valuables the day of surgery, leave them at home. Please take a shower or bath the night before, or the morning of, surgery with an antibacterial soap (HIBICLENS). Wear comfortable, loose fitting clothing. - Jewelry must be removed prior to entering the operating room. Rings and piercings that are not removed may be cut off. - The hospital will not accept responsibility for valuables. - Please leave all valuables, including medications, at home the day of surgery. If you are going home after surgery, a licensed driver material handler must drive you home. - NO public transportation without another adult if you receive anesthesia. - We recommend that an adult stay with you for 24 hours following discharge. - We also recommend that you do not drive, make important decision, drink alcoholic beverages, or take any drugs that were not prescribed by your health care provider for at least 24 hours after your discharge time. Follow any additional instructions given to you from your surgeon. If you or anyone in your household have experienced Covid symptoms in the past week, please notify your surgeon or the nurse liaison at the phone number below for possible testing. Telephone instructions given to PT - JYOTI CERNA and asked if any additional questions and then verbalized understanding. Patient advised to call surgeon office or pre surgery nurse liaison [phone] if any additional questions.
[2022-08-08] VITALS (9 sets, daily range): BP systolic 108–156; BP diastolic 59–90; PULSE 85–102; RESP 13–22; TEMP 36.3–36.4; O2SAT 92–99
[2022-08-08] MEDS: ACETAMINOPHEN 500 MG TABLET 1000 MG PO (10:47)
[2022-08-08] MEDS: LACTATED RINGERS 1,000 ML 30 ML IV CONT (11:06)
[2022-08-08] MEDS: KETOROLAC 15 MG/ML VIAL (*BKC) IV PUSH (11:07)
--- NOTE | 2022-08-08 12:25 | SUR.PREOP ---
pt informed of delay in procedure
--- NOTE | 2022-08-08 12:51 | WPDHPUPDATE1 ---
History and Physical Update Update Date/Time: 08/08/22 12:51 History and Physical has been reviewed, including an updated exam of the patient. There are NO changes in the patient's condition. Risks, benefits, and alternatives have been discussed and questions answered. Patient agrees to proceed with procedure.
--- NOTE | 2022-08-08 12:51 | PM.IMHP ---
H&P: HPI History of Present Illness Date/Time: 08/08/22 12:51 Chief Complaint: Incarcerated umbilical hernia Narrative: This is a 61-year-old woman who presents for umbilical hernia repair. She reports no changes since last seen in the office. Review of Systems Review of Systems: All systems reviewed & are unremarkable except as noted in HPI and below Constitutional: Constitutional: Denies chills, Denies fever(s), Denies headache(s) and Denies weight loss Eyes: Eyes: Denies change in vision ENT: Denies dizziness, Denies headache(s), Denies neck mass and Denies throat swelling Cardiovascular: Cardiovascular: Denies chest pain, Denies lightheadedness and Denies dyspnea Respiratory: Respiratory: Denies cough, Denies dyspnea and Denies wheezing Gastrointestinal: Gastrointestinal: Denies abdominal pain, Denies change in bowel habits, Denies nausea and Denies vomiting Genitourinary: Genitourinary: Denies hematuria and Denies dysuria Musculoskeletal: Musculoskeletal: Reports as per HPI Integumentary/Breasts: Skin/Breast: Reports as per HPI Neurologic: Denies dizziness and Denies headache(s) Allergic/Immunologic: Allergic/Immunologic: Denies throat swelling and Denies wheezing PMF Past Medical History Medical History (Updated 07/05/22 @ 10:49 by Diamante Alberts) Bronchitis GERD (gastroesophageal reflux disease) Hyperlipidemia Hypertension Thyroid disease Surgical History Surgical History History of bilateral carpal tunnel release History of bilateral knee replacement History of right hip replacement Hx of cardiac cath Hx of tonsillectomy Family History Family History Other Cerebrovascular accident Diabetes mellitus Heart disease Hypertension Social History Social History Smoking status: Never smoker Alcohol intake: never Substance use: never Substance use type: does not use Living arrangements: with family Spiritual care concerns: No Meds Home Medications and Allergies Home Medications Medication Instructions Recorded Confirmed Type atorvastatin 40 mg tablet 40 mg PO DAILY 02/13/22 08/08/22 History duloxetine 60 mg capsule,delayed 120 mg PO DAILY 02/13/22 08/08/22 History release levothyroxine 200 mcg tablet 200 mcg PO DAILY 02/13/22 08/08/22 History metoprolol succinate 50 mg 50 mg PO DAILY 02/13/22 08/08/22 History tablet,extended release 24 hr omeprazole 20 mg capsule,delayed 20 mg PO DAILY 02/13/22 08/08/22 History release triamterene 37.5 1 tablet PO DAILY 02/13/22 08/08/22 History mg-hydrochlorothiazide 25 mg tablet cholecalciferol (vitamin D3) 50 50 mcg PO DAILY 07/05/22 08/08/22 History mcg (2,000 unit) capsule sjgmsdyusfwu-xqlkjrje-qzhnuoq-folic 1 tablet PO DAILY 07/05/22 08/08/22 History acid 400 mcg-vit K1 20 mcg tablet (One-A-Day Women's 50 Plus) Allergies Allergy/AdvReac Type Severity Reaction Status Date / Time ampicillin Allergy Intermediate HIVES Verified 08/08/22 10:41 Vital Signs Vital Signs - 24 hr 08/08/22 10:22 Temperature 36.4 C L Pulse Rate 101 H Respiratory Rate 16 Blood Pressure 141/85 H Pulse Oximetry 96 Oxygen Delivery Room Air Exam Const: General: no acute distress and alert Orientation/consciousness: patient oriented x3 HENMT: Head: normocephalic and atraumatic Ears: hearing grossly normal bilaterally Face/Nose/Sinus: Normal nares present Mouth: Yes Normal oral and palatal mucosa present Eyes: Periorbital: periorbital findings normal Sclera: sclerae normal EOM: EOMs intact bilaterally Neck: Neck: normal visual inspection, no lymphadenopathy and trachea midline Chest: Chest palpation & inspection: normal inspection of the chest Resp: Effort & Inspection: normal respiratory effort Auscultation: clear to auscult
--- NOTE | 2022-08-08 12:52 | WPDANESEPPF ---
Anes - Initial Pre Proc Eval Procedure: Operation Date: 08/08/22 12:30 Proposed Procedures p Laparoscopic Incarcerated Umbilical Hernia Repair with Mesh, DaVinci Assisted - Tao Call DO Date/Time: 08/08/22 12:52 Surgeon: Tao Call DO Pre Op Diagnosis: Incarcerated Umb Hernia Patient Data Age: 61 Gender: F Height: 1.63 m Weight: 107.4 kg Last Vital Signs Temp 36.4 C L 08/08/22 10:22 Pulse 101 H 08/08/22 10:22 Resp 16 08/08/22 10:22 BP 141/85 H 08/08/22 10:22 Pulse Ox 96 08/08/22 10:22 O2 Del Method Room Air 08/08/22 10:22 Allergies Allergy/AdvReac Type Severity Reaction Status Date / Time ampicillin Allergy Intermediate HIVES Verified 08/08/22 10:41 Home Medications Medication Instructions Recorded Confirmed Type atorvastatin 40 mg tablet 40 mg PO DAILY 02/13/22 08/08/22 History duloxetine 60 mg capsule,delayed 120 mg PO DAILY 02/13/22 08/08/22 History release levothyroxine 200 mcg tablet 200 mcg PO DAILY 02/13/22 08/08/22 History metoprolol succinate 50 mg 50 mg PO DAILY 02/13/22 08/08/22 History tablet,extended release 24 hr omeprazole 20 mg capsule,delayed 20 mg PO DAILY 02/13/22 08/08/22 History release triamterene 37.5 1 tablet PO DAILY 02/13/22 08/08/22 History mg-hydrochlorothiazide 25 mg tablet cholecalciferol (vitamin D3) 50 50 mcg PO DAILY 07/05/22 08/08/22 History mcg (2,000 unit) capsule fhqbvnlrtvel-mbgagyqx-tqmfzrq-folic 1 tablet PO DAILY 07/05/22 08/08/22 History acid 400 mcg-vit K1 20 mcg tablet (One-A-Day Women's 50 Plus) Patient hx anesthesia problems: none Family hx anesthesia problems: none Results Review: All pre-operative results and documents have been reviewed as part of the pre-operative evaluation. [facility] Past Medical History Medical History Bronchitis GERD (gastroesophageal reflux disease) Hyperlipidemia Hypertension Thyroid disease Surgical History Surgical History History of bilateral carpal tunnel release History of bilateral knee replacement History of right hip replacement Hx of cardiac cath Hx of tonsillectomy Family History Family History Other Cerebrovascular accident Diabetes mellitus Heart disease Hypertension Social History Social History Smoking status: Never smoker Alcohol intake: never Substance use: never Substance use type: does not use Living arrangements: with family Spiritual care concerns: No Anes - Eval Final PreProcedure Day of Procedure 08/08/22 12:52 Patient weight: morbidly obese Heart: regular rate and rhythm Lungs: clear to auscultation Airway: Mallampati scale class III Neurological: alert and oriented Last oral intake: >/= 8 hours ASA classification: III Emergent: no Anesthetic plan: proceed Anesthesia type and monitoring: general ETT and standard monitoring Results Review: All pre-operative results and documents have been reviewed as part of the pre-operative evaluation. Informed Consent: The patient's anesthetic plan and its attendant risks and benefits were discussed with the patient/family/POA. Questions were solicited and answers provided to the satisfaction of the patient/family/POA.
[2022-08-08] MEDS: ceFAZolin 2 GM/D5W 50 ML 2 GM/50 ML BAG IVPB (13:22)
--- NOTE | 2022-08-08 15:11 | W.PM.PROC2 ---
Procedure Note - Detailed Date of Procedure 08/08/22 Pre-op Diagnosis Incarcerated Umbilical Hernia Post-op Diagnosis Same Procedure Performed Laparoscopic 2 cm Incarcerated Umbilical Hernia Repair with Mesh, da Sg assisted Surgeon Tao Call DO Anesthesia General and Local (Exparel) Indications This is a 61 year old woman who presented with an umbilical bulge that she noticed about 1 year ago. It has slightly increased in size and is causing some discomfort. An ultrasound was obtained which showed evidence of a fat containing umbilical hernia. This was found to be incarcerated on physical exam. Discussions were made with the patient about treatment options and decision was made to proceed with robotic assisted laparoscopic incarcerated umbilical hernia repair with mesh. Findings Laparoscopic incarcerated umbilical hernia repair was performed. Patient was found to have a 2 cm umbilical hernia incarcerated with omentum and preperitoneal fat. The omentum was reduced and then a robotic transabdominal preperitoneal repair was performed. A 10.5 cm round Bard soft mesh was placed within the preperitoneal pocket and secured to the abdominal wall using 3-0 Vicryl simple interrupted sutures. No specimens were obtained for pathology. Description of Procedure Procedure as well as risks, benefits, and alternatives were discussed with the patient. Written consent was obtained and placed in chart prior to procedure. Patient was brought back to surgical suite. She was placed supine on operating table. Time-out was done to confirm patient and procedure. She was then intubated by the anesthesia department. A bump was placed under her left hip, and the bed was flexed slightly to extend the space between her costal margin and iliac crest. Her abdomen was prepped and draped in sterile fashion using chlorhexidine prep. A 8 millimeter incision was made in the left upper quadrant, and a 5 millimeter Optiview trocar was advanced through the abdominal layers under direct visualization. Once inside the abdominal cavity, carbon dioxide insufflation was used to create a pneumoperitoneum. Her abdomen was inspected. An 8 millimeter incision was made in the left lower quadrant, and an 8 millimeter robotic trocar was placed under direct visualization. Another 8 millimeter incision was made in the left lateral abdomen, and an 8 millimeter robotic trocar was placed under direct visualization. Exparel was infiltrated along the lateral abdominal gray to perform a transversus abdominis plane block bilaterally. The 5 millimeter port was removed, and an 8 mm port was placed at this location. The robotic arms were brought up to the patient's bedside and secured to the ports. The camera and instruments were inserted, and I then moved over to the robotic console and took control of the camera and instruments. After careful thorough inspection of the abdominal cavity, I began my dissection at the hernia. The incarcerated omentum was carefully reduced using blunt dissection and scissors with electrocautery. A preperitoneal pocket was then started on the left lateral abdomen and this was dissected medially to the hernia sac which was then reduced. I then continued the dissection to the right lateral abdomen wide enough to allow for mesh placement. I then measured the hernia size. The hernia measured 2 cm. The fascia was closed using an 0-Stratafix running suture in a vertical fashion. A Bard soft mesh cut to 10.5 cm round was then placed within the preperitoneal pocket. This was oriented vertically with the mesh centered on the hernia defect. The mesh was then secured to the abdominal wall using 3-0 Vicryl simple interrupted sutures at the 4 corners and central portion of the mesh. The peritoneum was then closed back over the mesh using 3 0 V lock running absorbable suture. The repair was inspected, and one final inspection was made around the abdominal cavity. The robotic
[2022-08-08] MEDS: fentaNYL CITRATE INJ (*CRX) 100 MCG/2 ML VIAL 25 MCG IV PUSH ×2 (15:50→16:06)
[2022-08-08] MEDS: oxyCODONE HCL (*CRX) 5 MG TAB IR PO (16:53)
== END 2022-08-08 17:50 | disposition home or self-care (01) ==
PROVIDERS: PCP Internal Medicine; Visit Provider Surgery
PROC: (CPT 49592; principal; 2022-08-08 12:30)
DX: K42.0 Umbilical hernia with obstruction, without gangrene (principal); I10 Essential (primary) hypertension; E78.5 Hyperlipidemia, unspecified; K21.9 Gastro-esophageal reflux disease without esophagitis; E07.9 Disorder of thyroid, unspecified; E66.01 Morbid (severe) obesity due to excess calories; Z68.41 Body mass index [BMI] 40.0-44.9, adult
CPT/HCPCS: 49592; S2900; A9270; C1781; C9290; J0690; J1200; J1885; J2250; J2405; J2704; J2710; J3010; J7120

== ENCOUNTER 2022-10-09 08:23 | Outpatient (CLI) | payer MEDICARE, SELFPAY ==
--- NOTE | ~2022-10-09 | MM_ITS ---
EXAMINATION: MM screening [facility] BI w [place] HISTORY: Screening mammogram TECHNIQUE: Craniocaudal and mediolateral oblique 3-D tomosynthesis images were obtained and synthetic 2-D images were generated. CAD analysis was submitted and interpreted. COMPARISON: 06/26/2021, 06/20/2021, 07/09/2019 BREAST PARENCHYMAL COMPOSITION: There are scattered areas of fibroglandular density. FINDINGS: No suspicious mass, calcification, or architectural distortion are identified in either [place] ast to suggest malignancy. There has been no suspicious interval change. IMPRESSION: 1. No mammographic evidence of malignancy. 2. Recommend routine screening mammography in one year. BI-RADS Category 1: Negative Reviewed, dictated and finalized at location A.
== END 2022-10-09 08:24 | disposition home or self-care (01) ==
LOC: CHSIMG 08:25
PROVIDERS: PCP Internal Medicine; Visit Provider Internal Medicine
DX: Z12.31 Encounter for screening mammogram for malignant neoplasm of breast (principal)
CPT/HCPCS: 77063; 77067

== ENCOUNTER 2022-12-12 09:49 | Outpatient (CLI) | payer MEDICARE, SELFPAY ==
[2022-12-12 10:05] LABS: Basophils Percent Auto 1.7 % (0.0-1.0); Eosinophils Absolute Auto 0.16 K/mm3 (0.02-0.50); Eosinophils Percent Auto 2.6 % (1.0-6.0); Hematocrit 40.8 % (35.0-49.0); Hemoglobin 13.7 g/dL (12.0-15.0); Immature Granulocyte Absolute 0.01 K/mm3 (0.00-0.00); Immature Granulocyte Percent A 0.2 % (0.0-0.0); Lymphocytes Absolute Auto 2.09 K/mm3 (1.10-4.50); Lymphocytes Percent Auto 34.5 % (18.0-42.0); Mean Corpuscular HGB Conc 33.6 g/dL (32.0-36.0); Mean Corpuscular Hemoglobin 27.8 pg (27.0-31.0); Mean Corpuscular Volume 82.8 fL (78.0-102.0); Mean Platelet Volume 8.6 fl (9.2-11.8); Monocytes Absolute Auto 0.49 K/mm3 (0.10-0.90); Monocytes Percent Auto 8.1 % (2.0-11.0); Neutrophils Absolute Auto 3.2 K/mm3 (1.7-7.2); Neutrophils Percent Auto 52.9 % (50.0-70.0); Platelet Count Result 379 K/mm3 (150-420); Red Blood Count 4.93 M/mm3 (4.20-5.40); Red Cell Distribution Width 13.1 % (11.6-14.4); White Blood Count 6.1 K/mm3 (4.8-10.8)
[2022-12-12 10:08] LABS: Appearance Urine Clear (Clear); Bilirubin Urine Negative (Negative); Blood Urine Negative (Negative); Color Urine Light Yellow (Yellow); Glucose Urine UA Negative (Negative); Ketones Urine Negative (Negative); Leukocyte Esterase Ur Negative (Negative); Nitrate Urine Negative (Negative); Protein Urine Negative (Negative); Urobilinogen Urine 0.2 mg/dL (0.2-1.0)
[2022-12-12 10:20] LABS: Add Urine Microscopic? NO
[2022-12-12 10:24] LABS: Hemoglobin A1C 6.5 % (<5.7)
[2022-12-12 10:44] LABS: Alanine Aminotransferase 39 U/L (14-59); Albumin Level 4.2 g/dL (3.4-5.0); Alkaline Phosphatase 76 U/L (46-116); Anion Gap 6 mmol/L (8-16); Aspartate Amino Transferase 20 U/L (15-37); Bilirubin,Total 0.7 mg/dL (0.00-1.00); Blood Urea Nitrogen 9 mg/dL (7-18); Calcium 9.8 mg/dL (8.5-10.1); Carbon Dioxide 33 mmol/L (21-32); Chloride 94 mmol/L (98-108); Cholesterol 176 mg/dL (0-200); Estimated Glomerular Filt Rate > 60; Free T4 Free Thyroxine 0.99 ng/dL (0.76-1.46); Glucose 115 mg/dL (70-99); HDL Direct 46 mg/dL (40-60); LDL Cholesterol Calculated 88 mg/dL (<130); Osmolality Calculated 275 mOsm/kg (285-295); Potassium 4.6 mmol/L (3.5-5.1); Sodium 133 mmol/L (136-145); Thyroid Stimulating Hormone 2.41 uIU/mL (0.36-3.74); Total Protein 7.4 g/dL (6.4-8.2); Triglycerides 210 mg/dL (0-150)
== END 2022-12-12 09:50 | disposition home or self-care (01) ==
LOC: CHSLAB 09:51
PROVIDERS: PCP Internal Medicine; Visit Provider Internal Medicine
DX: I10 Essential (primary) hypertension (principal); E78.2 Mixed hyperlipidemia; E03.4 Atrophy of thyroid (acquired); R53.82 Chronic fatigue, unspecified; R73.01 Impaired fasting glucose
CPT/HCPCS: 36415; 80053; 80061; 81003; 83036; 84439; 84443; 84481; 85025

== ENCOUNTER 2023-03-15 11:05 | Outpatient (CLI) | payer MEDICARE, SELFPAY ==
--- NOTE | ~2023-03-15 | XR_ITS ---
Right Knee Technique: AP, lateral, and sunrise views were obtained. Clinical History: Injury Findings: No fracture or dislocation is seen. Right knee arthroplasty hardware in place. No hardware complication seen. Soft tissues are unremarkable. No joint effusion is seen. Impression: No acute abnormality. Right knee arthroplasty hardware in place. Reviewed, dictated and finalized at location . Impression: No acute abnormality. Right knee arthroplasty hardware in place.
== END 2023-03-15 11:06 | disposition home or self-care (01) ==
LOC: CHSIMG 11:07
PROVIDERS: PCP Internal Medicine; Visit Provider Internal Medicine
DX: M25.561 Pain in right knee (principal); Z96.651 Presence of right artificial knee joint
CPT/HCPCS: 73564

== ENCOUNTER 2023-09-10 14:38 | Outpatient (CLI) | payer MEDICARE, SELFPAY ==
--- NOTE | ~2023-09-10 | XR_ITS ---
XR heel LT min 2V 09/10/2023 15:23 Indication: Left heel pain Procedure: 2 views left heel/os calcis Comparison: No prior studies for comparison. Findings: Prominent degenerative calcaneal enthesophytes. No fracture or traumatic malalignment. No s oft tissue abnormality. No foreign bodies. Impression: 1: Prominent degenerative calcaneal enthesophytes. Reviewed, dictated and finalized at location A. Impression: 1: Prominent degenerative calcaneal enthesophytes.
--- NOTE | ~2023-09-10 | XR_ITS ---
XR foot RT min 3V 09/10/2023 15:23 Indication: Right foot pain Procedure: 4 views right foot Comparison: No prior studies for comparison. Findings: The there is mild polyarticular osteoarthritis. There is a degenerative calcaneal spur at t he plantar surface. No acute fracture or traumatic malalignment. No focal soft tissue abnormality. Li sfranc joint intact. Impression: 1: Mild polyarticular osteoarthritis. Reviewed, dictated and finalized at location A. Impression: 1: Mild polyarticular osteoarthritis.
--- NOTE | ~2023-09-10 | XR_ITS ---
XR foot LT min 3V 09/10/2023 15:23 Indication: Left foot pain Procedure: 4 views left foot Comparison: No prior studies for comparison. Findings: There is moderate-severe osteoarthritis of the first MTP joint with hallux valgus. Lisfranc joint intact. There are prominent degenerative calcaneal enthesophytes. There are mild degenerative changes of the midfoot. Impression: 1: Polyarticular osteoarthritis, most advanced at the first MTP joint with associated hallux valgus. Reviewed, dictated and finalized at location A. Impression: 1: Polyarticular osteoarthritis, most advanced at the first MTP joint with asso ciated hallux valgus.
== END 2023-09-10 14:39 | disposition home or self-care (01) ==
PROVIDERS: PCP Internal Medicine; Visit Provider Internal Medicine
DX: M79.671 Pain in right foot (principal); M79.672 Pain in left foot; M19.072 Primary osteoarthritis, left ankle and foot; M19.071 Primary osteoarthritis, right ankle and foot; M77.32 Calcaneal spur, left foot
CPT/HCPCS: 73630; 73650

== ENCOUNTER 2023-10-08 09:59 | Outpatient (CLI) | payer MEDICARE, SELFPAY ==
--- NOTE | 2023-10-08 11:00 | NEURO_ITS ---
Impression: # Complains of numbness of lower extremities. # Motor/Distal symmetrical neuropathy. # Needle/EMG exam mildly neurogenic distally. # Clinical correlation recommended. Nerve Conduction Studies Anti Sensory Summary Table Stim Site NR Peak (ms) P-T Amp (?V) Site1 Site2 Delta-P (ms) Dist (cm) Frandy (m/s) Left Sup Fibular Anti Sensory (Ant Lat Mall) 14 cm 3.4 31.2 14 cm Ant Lat Mall 3.4 16.0 47 Right Sup Fibular Anti Sensory (Ant Lat Mall) 14 cm 4.2 8.5 14 cm Ant Lat Mall 4.2 16.0 38 Left Sural Anti Sensory (Lat Mall) Calf 3.8 3.1 Calf Lat Mall 3.8 16.0 42 Right Sural Anti Sensory (Lat Mall) Calf 3.8 11.8 Calf Lat Mall 3.8 16.0 42 Motor Summary Table Stim Site NR Onset (ms) O-P Amp (mV) Site1 Site2 Delta-0 (ms) Dist (cm) Frandy (m/s) Left Peroneal Motor (Vastus Med) Ankle 3.9 1.7 Popit Ankle 10.5 43.0 41 Popit 14.4 0.9 Right Peroneal Motor (Vastus Med) Ankle 4.0 4.0 Popit Ankle 10.1 40.0 40 Popit 14.1 2.4 Left Tibial Motor (Abd Wilcox Brev) Ankle 4.1 3.8 Knee Ankle 10.4 42.0 40 Knee 14.5 2.3 Right Tibial Motor (Abd Wilcox Brev) Ankle 4.1 1.5 Knee Ankle 10.0 40.0 40 Knee 14.1 0.7 F Wave Studies NR F-Lat (ms) L-R F-Lat (ms) Left Peroneal (Mrkrs) (EDB) 57.19 1.56 Right Peroneal (Mrkrs) (EDB) 55.63 1.56 Left Tibial (Mrkrs) (Abd Hallucis) 57.90 1.21 Right Tibial (Mrkrs) (Abd Hallucis) 56.69 1.21 EMG Side Muscle Nerve Root Ins Act Fibs Amp Dur Recrt Comment Right AntTibialis Dp Br Fibular L4-5 Nml Nml Nml Nml Nml Right Gastroc Tibial S1-2 Nml Nml Nml Nml Nml Right Fibularis Long Sup Br Fibular L5-S1 Nml Nml Nml Nml Nml Right Flex Dig Long Tibial L5-S2 Nml Nml Nml Nml Nml Right Ext Dig Brev Dp Br Fibular L5, S1 Nml Nml Nml >12ms +1 Left AntTibialis Dp Br Fibular L4-5 Nml Nml Nml Nml Nml Left Gastroc Tibial S1-2 Nml Nml Nml Nml Nml Left Fibularis Long Sup Br Fibular L5-S1 Nml Nml Nml Nml Nml Left Flex Dig Long Tibial L5-S2 Nml Nml Nml Nml Nml Left Ext Dig Brev Dp Br Fibular L5, S1 Nml Nml Nml >12ms +1 MTDD
== END 2023-10-08 10:00 | disposition home or self-care (01) ==
LOC: ANHNEURO 10:00
PROVIDERS: PCP Internal Medicine; Visit Provider Internal Medicine
DX: G62.9 Polyneuropathy, unspecified (principal)
CPT/HCPCS: 95886; 95910

== ENCOUNTER 2023-10-12 07:30 | Outpatient (CLI) | payer MEDICARE, SELFPAY ==
--- NOTE | ~2023-10-12 | MR_ITS ---
EXAMINATION: MR lumbar spine wo con DATE: 10/12/2023 08:01 INDICATION: Lumbar radiculopathy. Low back pain. TECHNIQUE: Magnetic resonance imaging (MRI) of the lumbar spine was performed without intravenous con trast. COMPARISON: Lumbar spine radiographs 03/03/2022 FINDINGS: There is 13 degrees dextroscoliosis of thoracolumbar spine. There is 2 mm retrolisthesis of T12 on L1, L1 on L2, and L2 on L3. There is mild chronic anterior wedging of T11 and T12 vertebral b odies. There are Schmorl's nodes at many levels. There is moderately decreased disc height at L1-L2, severely decreased disc height at L2-L3 and L3-L4, and moderately decreased disc height at L4-5. Epid ural lipomatosis is noted. The distal spinal cord signal intensity is normal. The conus medullaris is at L1. The following disc levels are specifically discussed: L1-L2: The disc is bulging and has an annular fissure. There is moderate bilateral facet joint osteoa rthritis. There is mild right and moderate left neural foraminal stenosis. There is mild central marcio l stenosis. L2-L3: The disc is bulging and has an annular fissure. There is moderate bilateral facet joint osteoa rthritis. There is mild right and moderate left neural foraminal stenosis. There is mild central marcio l stenosis. L3-L4: The disc is bulging and has an annular fissure. There is severe bilateral facet joint osteoart hritis. There is moderate and mild left neural foraminal stenosis. There is moderate central canal st enosis. L4-L5: The disc is bulging and has an annular fissure. There is severe bilateral facet joint osteoart hritis. There is mild bilateral neural foraminal stenosis. There is severe central canal stenosis. L5-S1: The disc is bulging and has an annular fissure. There is severe bilateral facet joint osteoart hritis. There is mild bilateral neural foraminal stenosis. There is mild central canal stenosis. IMPRESSION: 1. Severe lumbar spondylosis. 2. Thoracolumbar dextroscoliosis. Reviewed, dictated and finalized at location E.
== END 2023-10-12 07:31 ==
PROVIDERS: PCP Internal Medicine; Visit Provider Internal Medicine
DX: M47.26 Other spondylosis with radiculopathy, lumbar region (principal)
CPT/HCPCS: 72148

== ENCOUNTER 2023-10-23 13:20 | Outpatient (RCR) | payer MEDICARE, SELFPAY ==
--- NOTE | 2023-10-23 13:14 | OPREHPOC ---
Outpatient Therapy Plan of Care This is a Multidisciplinary Plan of Care that may contain components documented by all disciplines (PT, OT, and ST.) PT Problem 1 PT Problem #1 Knowledge Deficit PT Goal 1 Goal 1. independent and compliant with HEP. Target Visit 3 PT Problem 2 PT Problem #2 Pain PT Goal 1 Goal 1. decrease pain at worst to 4/10 in the lower back. Target Visit 9 PT Problem 3 PT Problem #3 Impaired Range of Motion PT Goal 1 Goal 1. improve active lumbar flexion to toes 2. improve active lumbar extension to 20 degrees 3. improve active lumbar side bending to 30 degrees bilat Target Visit 9 PT Problem 4 PT Problem #4 Impaired Strength PT Goal 1 Goal 1. improve core strength to 4/5 or better 2. improve bilateral hip strength to 5/5 Target Visit 9 PT Problem 5 PT Problem #5 Impaired Functional Mobil PT Goal 1 Goal 1. patient to display oswestry score of 30% or less functional deficits 2. patient to tolerate 1 hour or more standing/ walking to complete home and community activities without increased pain Target Visit 9
--- NOTE | 2023-10-23 13:14 | PTOPEVAL1 ---
Assessment and note entered by JT File, PT Evaluation Information Assessment Status Evaluation Diagnosis low back pain, lumbar spinal stenosis Onset 10/18/23 Subjective Information patient reports she has been having pain in the back and issues with neuropathy in the legs. she reports she has had symptoms for 5 or more years. she reports she had a nerve conduction test that indicated a need for the MRI of the lumbar spine. she reports she had this done, and is getting referred to a surgeon for the back. she reports she may need a laminectomy. she reports she was told she is developing significant hardening and stenosis in the lumbar spine. she reports she is hoping to get stronger with exercises and decrease some of her pain. she reports now the back has progressed to where she feels her legs are about to give out on her. she reports around the home she is unable to stand for any functional time to perform cleaning, cooking, and care activities. she reports sitting does not bother her. Reported Pain Level Pain Score 7: Self Report Assessment PT Clinical Summary mrs. lyons is a pleasant 63 yo woman who presents to skilled PT services for evaluation and treatment of lower back pain. she displays decreased lumbar rom, pain, proximal LE and core weakness, and deficits in extension position tolerance indicative of lumbar spinal stenosis. she would benefit from continued skilled PT to address her objective/functional deficits and to improve her functional activity tolerance/ performance to improve her quality of life and push off surgery as long as she can. Plan of Care Interventions Electrical Stimulation,Hot Pack/Cold Pack,Manual Therapy,Mechanical Traction,Neuro Re-education, Patient/Caregiver Educati,Therapeutic Activities, Therapeutic Exercise PT Services Indicated Yes Treatment Frequency and 3x weekly for 9 visits Duration These treatments will address the objective and functional deficits as defined above. The patient will be advanced safely and appropriately in order for the patient to progress towards his/her prior level of function. Additional exercises will be introduced and as well as a comprehensive home exercise program upon discharge, if needed, ?to ensure carryover of functional gains achieved in the clinic. This treatment plan has been reviewed and agreement upon by the patient.
--- NOTE | 2023-11-29 11:18 | OPREHPOC ---
Outpatient Therapy Plan of Care This is a Multidisciplinary Plan of Care that may contain components documented by all disciplines (PT, OT, and ST.) PT Problem 1 PT Problem #1 Knowledge Deficit PT Goal 1 Goal 1. independent and compliant with HEP. Target Visit 3 Progress Met PT Problem 2 PT Problem #2 Pain PT Goal 1 Goal 1. decrease pain at worst to 4/10 in the lower back. Target Visit 15 Progress Not Met Comment continue PT Problem 3 PT Problem #3 Impaired Range of Motion PT Goal 1 Goal 1. improve active lumbar flexion to toes. not met 2. improve active lumbar extension to 20 degrees. not met 3. improve active lumbar side bending to 30 degrees bilat. met 4. improve active bilateral cervical side bending to 35 degrees or better 5. improve active bilateral cervical rotation to 75 degrees or better Target Visit 15 Progress Partially Met PT Problem 4 PT Problem #4 Impaired Strength PT Goal 1 Goal 1. improve core strength to 4/5 or better. not met 2. improve bilateral hip strength to 5/5. not met 3. improve L shoulder strength to 4+/5 or better overall Target Visit 15 Progress Not Met Comment continue PT Problem 5 PT Problem #5 Impaired Functional Mobil PT Goal 1 Goal 1. patient to display oswestry score of 30% or less functional deficits 2. patient to tolerate 1 hour or more standing/ walking to complete home and community activities without increased pain 3. patient to report no radicular symptoms in the bilateral UE's 4. patient to sleep through the night 4 nights a week without being woken up due to neck or back issues Target Visit 15 Progress Not Met Comment
--- NOTE | 2023-11-29 11:18 | PTOPREEVAL ---
Assessment and note entered by JT File, PT Evaluation Information Assessment Status Re-evaluation Diagnosis low back pain, lumbar spinal stenosis Onset 10/18/23 Subjective Information patient reports the back does not feel too bad today. however, she reports she still has increased pain with standing. she reports she has to take frequent rest breaks. during her time/ treatment of lower back pain, she has been complicated with L shoulder pain. she reports she also has tingling down the L arm. she also had an injury to the L ankle, and tore the achilles during her time in PT for low back pain. she reports the back pain has been getting better since starting skilled PT. she reports, in regards to the L shoulder, she has increased pain laying in bed, slouching her posture, and trying to sleep . Reported Pain Level Pain Score 5,2: Self Report Pain Score 1,6: Self Report Assessment PT Clinical Summary mrs. lyons presents to skilled PT services for her 9th skilled PT visit for lower back pain/DDD. she has been complicated by additional issues with her neck/L shoulder and a tear in the L achilles. she continues to display deficits in lumbar rom, lumbar pain, decreased hip strength, and decreased core strength. she displays new cervical rom deficits, L UE weakness, and radicular symptoms in the L UE. given her continued deficits in the lower back, and new deficits in the neck and L UE, she would benefit from continued skilled PT to address her deficits and progress towards a return to her prior level functional activity performance/quality of life. patient will likely not achieve normal ambulation mechanics until she has her L achilles tear repaired. Plan of Care Interventions Electrical Stimulation,Hot Pack/Cold Pack,Manual Therapy,Mechanical Traction,Neuro Re-education, Patient/Caregiver Educati,Therapeutic Activities, Therapeutic Exercise PT Services Indicated Yes Treatment Frequency and continue skilled PT 2x weekly for 6 more visits Duration These treatments will address the objective and functional deficits as defined above. The patient will be advanced safely and appropriately in order for the patient to progress towards his/her prior level of function. Additional exercises will be introduced and as well as a comprehensive home exercise program upon discharge, if needed, ?to ensure carryover of functional gains achieved in the clinic. This treatmen
--- NOTE | 2023-12-27 13:22 | OPREHPOC ---
Outpatient Therapy Plan of Care This is a Multidisciplinary Plan of Care that may contain components documented by all disciplines (PT, OT, and ST.) PT Problem 1 PT Problem #1 Knowledge Deficit PT Goal 1 Goal 1. independent and compliant with HEP. Target Visit 3 Progress Met PT Problem 2 PT Problem #2 Pain PT Goal 1 Goal 1. decrease pain at worst to 4/10 in the lower back. 1. decrease pain at worst to 4/10 or less in the cervical spine. Target Visit 23 Progress Not Met Comment continue PT Problem 3 PT Problem #3 Impaired Range of Motion PT Goal 1 Goal 1. improve active lumbar flexion to toes. not met 2. improve active lumbar extension to 20 degrees. not met 3. improve active lumbar side bending to 30 degrees bilat. met 4. improve active bilateral cervical side bending to 35 degrees or better. not met 5. improve active bilateral cervical rotation to 75 degrees or better. not met Target Visit 23 Progress Partially Met PT Problem 4 PT Problem #4 Impaired Strength PT Goal 1 Goal 1. improve core strength to 4/5 or better. not met 2. improve bilateral hip strength to 5/5. not met 3. improve L shoulder strength to 4+/5 or better overall. met Target Visit 23 Progress Partially Met Comment continue PT Problem 5 PT Problem #5 Impaired Functional Mobil PT Goal 1 Goal 1. patient to display oswestry score of 30% or less functional deficits. not met 2. patient to tolerate 1 hour or more standing/ walking to complete home and community activities without increased pain. not met 3. patient to report no radicular symptoms in the bilateral UE's. not met 4. patient to sleep through the night 4 nights a week without being woken up due to neck or back issues. not met 5. q
--- NOTE | 2023-12-27 13:22 | PTOPREEVAL ---
Assessment and note entered by JT File, PT Evaluation Information Assessment Status Re-evaluation Diagnosis low back pain, lumbar spinal stenosis ICD-10 Condition Codes (PT) Pain in low back M54.50,M54.13 Onset 10/18/23 Subjective Information patient reports she is sore today. she reports she has been back to the MD recently who wrote her a new order for cervical radiculopathy. she reports she continues to have pain in the lower back, but also has continued pain in the upper shoulder/neck. she reports her symptoms run down the L arm from the neck. she reports traction to the cervical spine has helped, but she continues to have symptoms in the neck and down the arm. she reports her lower back pain is increased with standing activities. she reports for some reason all her pains are increased today. Reported Pain Level Pain Score 8,6,7: Self Report Assessment PT Clinical Summary mr. lyons presents to skilled PT services for her 15th skilled therapy visit. along her time in therapy we have added the lower back, L shoulder, and now cervical spine/cervical radiculopathy. she presents today with continued deficits in her lower back, L shoulder, and cervical spine. her signs and symptoms are indicative of lumbar DDD, and cervical radiculopathy. she has made slow progress towards thus far, but has been complicated by addition of other body parts and injury to the L achilles. she would benefit from continued skilled PT to address her remaining objective/functional deficits to improve her quality of life and functional activity performance. Plan of Care Interventions Electrical Stimulation,Hot Pack/Cold Pack,Manual Therapy,Mechanical Traction,Neuro Re-education, Patient/Caregiver Educati,Therapeutic Activities, Therapeutic Exercise PT Services Indicated Yes Treatment Frequency and continue skilled PT 2x weekly for 8 more visits Duration These treatments will address the objective and functional deficits as defined above. The patient will be advanced safely and appropriately in order for the patient to progress towards his/her prior level of function. Additional exercises will be introduced and as well as a comprehensive home exercise program upon discharge, if needed, ?to ensure carryover of functional gains achieved in the clinic. This treatment plan has been reviewed and agreement upon by the patient.
== END 2024-01-20 15:39 | disposition still patient (30) ==
LOC: CHSPT 13:20
PROVIDERS: Visit Provider Internal Medicine
DX: M54.50 Low back pain, unspecified (principal); M48.061 Spinal stenosis, lumbar region without neurogenic claudication; M47.816 Spondylosis without myelopathy or radiculopathy, lumbar region
CPT/HCPCS: 97012; 97014; 97110; 97140; 97161; 97164; G0283

== ENCOUNTER 2023-11-13 13:19 | Outpatient (CLI) | payer MEDICARE, SELFPAY ==
--- NOTE | ~2023-11-13 | MR_ITS ---
MRI of the left calf CLINICAL HISTORY: Pain TECHNIQUE: T1-weighted and STIR images were performed in the axial, coronal, and sagittal planes. FINDINGS: Left knee arthroplasty hardware is present with associated susceptibility artifact in this region. Otherwise, visualized bone marrow signals are unremarkable. No bone marrow edema, fracture, o r osteomyelitis identified. No periosteal reaction seen. Joint spaces at the tibiotalar joint are int act. No joint effusion evident. Visualized musculature is intact. No muscle atrophy or edema evident. There is probable advanced tend inosis of the distal Achilles tendon with partial thickness tearing. No definite complete tear is see n. Remaining tendons are intact. There is minimal subcutaneous soft tissue edema, most prominent at t he Achilles tendon. IMPRESSION: Findings compatible with advanced Achilles tendinosis and probable partial tearing distally. Consider dedicated ankle MR to better evaluate the Achilles tendon with smaller, more focused [id number]. No complete tendon tear evident. Left knee arthroplasty. Reviewed, dictated and finalized at location . IMPRESSION: Findings compatible with advanced Achilles tendinosis and probable partial tear ing distally. Consider dedicated ankle MR to better evaluate the Achilles tendo n with smaller, more focused [id number]. No complete tendon tear evident. Left knee arthroplasty.
== END 2023-11-13 13:20 ==
LOC: MICIMG 13:20
PROVIDERS: PCP Internal Medicine; Visit Provider Internal Medicine
DX: M79.662 Pain in left lower leg (principal)
CPT/HCPCS: 73718

== ENCOUNTER 2023-11-22 08:39 | Outpatient (CLI) | payer MEDICARE, SELFPAY ==
--- NOTE | ~2023-11-22 | MR_ITS ---
EXAMINATION: MR ankle LT wo con DATE: 11/22/2023 09:14 INDICATION: Achilles tendinosis at the left ankle TECHNIQUE: Magnetic resonance imaging (MRI) of the left ankle was performed without intravenous contr ast. Sequences included sagittal, coronal, and axial proton-density weighted fast spin echo without a nd with fat saturation. COMPARISON: Left lower leg MRI dated 11/13/2023 FINDINGS: Medial ankle ligaments: There is thickening of the superficial deltoid ligament and loss of the normally more well-defined st riated pattern of the deep deltoid ligament with small heterotopic ossicle near its tibial insertion consistent with scarring related to chronic sprains. Spring ligament complex is normal. Lateral ankle ligaments: The anterior and posterior inferior tibiofibular ligaments are normal. The anterior talofibular, calc aneofibular and posterior talofibular ligaments are normal. Tendons: High-grade partial or more likely complete tear of the distal Achilles tendon. The majority of the te ndon is avulsed from the calcaneal insertion with interval progression of now up to 5 cm proximal ret raction of the torn tendon. There is a small portion of the tendon which remains attached to the calc aneus but which appears lax and tapers more proximally suggesting tear along the more proximal Achill es tendon with a small longitudinal defect seen along the more central aspect of the tendon of the la teral head of the gastrocnemius in the more proximal calf on the prior study. The plantaris tendon re ezra intact extending along the medial aspect of the torn Achilles tendon. Moderate-sized Achilles c alcaneal enthesophytes. The peroneus brevis tendon is normal. Mild tendinopathy without tear of the peroneus longus tendon wi th fusiform thickening and increased signal centered at the level of the retromalleolar groove. The t ibialis anterior and extensor hallucis longus and extensor digitorum longus tendons are normal. The t ibialis posterior, flexor digitorum longus and flexor hallucis longus tendons are normal. Plantar fascia: Moderate plantar calcaneal spurs with thickening and mild increased signal consistent with enthesopat hy of the central component of the central and lateral components of the plantar aponeurosis. No asso ciated marrow or surrounding soft tissue edema to suggest an acute plantar fasciitis. Bones/other: Bone alignment is normal. Mild polyarticular osteoarthritis at the tarsal metatarsal joints with mild subarticular cystlike and edema-like signal changes at the lateral cuneiform and minimally at the cu boid. Small low signal intensity bone island at the anterior process of the calcaneus. Fluid: Physiologic amount fluid in the joint spaces. There is some subcutaneous edema about the posterior an kle. No tenosynovitis, bursitis or other abnormal fluid collections. IMPRESSION: 1. High-grade partial or more likely complete tear with 5 cm proximal retraction of the distal Achill es tendon. 2. Moderate chronic plantar enthesopathy with no inflammatory change to suggest acute plantar fasciit is. 3. Mild peroneus longus tendinopathy without tear. 4. Scarring and heterotopic ossicles at the deltoid ligament consistent with sequela of chronic sprai n. Reviewed, dictated and finalized at location A. IMPRESSION: 1. High-grade partial or more likely complete tear with 5 cm proximal retractio n of the distal Achilles tendon. 2. Moderate chronic plantar enthesopathy with no inflammatory change to suggest acute plantar fasciitis. 3. Mild peroneus longus tendinopathy without tear. 4. Scarring and heterotopic ossicles at the deltoid ligament consistent with se quela of chronic sprain.
== END 2023-11-22 08:40 ==
LOC: MICIMG 08:40
PROVIDERS: PCP Internal Medicine; Visit Provider Internal Medicine
DX: M76.62 Achilles tendinitis, left leg (principal)
CPT/HCPCS: 73721

== ENCOUNTER 2024-01-11 09:38 | Outpatient (CLI) | payer MEDICARE, SELFPAY ==
--- NOTE | ~2024-01-11 | MR_ITS ---
EXAMINATION: MR shoulder LT wo con DATE: 01/11/2024 11:23 INDICATION: Left shoulder pain. Left arm pain and tingling. TECHNIQUE: Magnetic resonance imaging (MRI) of the left shoulder was performed without intravenous co ntrast. Sequences included axial PD-weighted FS FSE, coronal oblique PD-weighted FS FSE and T2-weight ed FS FSE, and sagittal oblique T2-weighted FS FSE and T1-weighted FSE. COMPARISON: None. FINDINGS: Coracoacromial arch: The acromion undersurface is curved in morphology (type II). There is severe acromioclavicular joint osteoarthritis including inferiorly directed osteophytes. There is mild subacromial/subdeltoid bursit is. Rotator cuff: There is moderate supraspinatus and infraspinatus tendinopathy. Teres minor tendon is normal. There i s an articular-sided partial thickness tear of subscapularis tendon. There is mild fatty atrophy of s ubscapularis muscle belly. Biceps tendon and glenoid labrum: Biceps tendon is in bicipital groove. There is mild biceps tendinopathy. There is degenerative tearin g of the glenoid labrum. Fluid: There is a small glenohumeral joint effusion. Bones/cartilage: There is partial-thickness cartilage loss of humeral head and glenoid. Osteophytes are noted. IMPRESSION: 1. Rotator cuff tendinopathy with partial-thickness tear of subscapularis tendon. 2. Moderate glenohumeral joint chondrosis. 3. Severe acromioclavicular joint osteoarthritis. 4. Mild intra-articular biceps tendinopathy. 5. Small glenohumeral joint effusion. 6. Mild subacromial/subdeltoid bursitis. Reviewed, dictated and finalized at location E. IMPRESSION: 1. Rotator cuff tendinopathy with partial-thickness tear of subscapularis tendo n. 2. Moderate glenohumeral joint chondrosis. 3. Severe acromioclavicular joint osteoarthritis. 4. Mild intra-articular biceps tendinopathy. 5. Small glenohumeral joint effusion. 6. Mild subacromial/subdeltoid bursitis.
--- NOTE | ~2024-01-11 | MR_ITS ---
EXAMINATION: MR cervical spine wo con DATE: 01/11/2024 10:58 INDICATION: Neck pain. Left arm pain and tingling. TECHNIQUE: Magnetic resonance imaging (MRI) of the cervical spine was performed without intravenous c ontrast. COMPARISON: Cervical spine MRI 07/14/2022 FINDINGS: There is kyphosis of cervical spine. Vertebral body heights are normal. There is moderately decreased disc height at C5-C6 and C6-C7. The spinal cord signal intensity is normal. The following disc levels are specifically discussed: C2-C3: The disc does not extend beyond the endplate margin. There is no uncovertebral joint osteoarth ritis. There is mild bilateral facet joint osteoarthritis. There is no neural foraminal stenosis. The re is no central canal stenosis. C3-C4: The disc does not extend beyond the endplate margin. There is no uncovertebral joint osteoarth ritis. There is mild left facet joint osteoarthritis. There is no neural foraminal stenosis. There is no central canal stenosis. C4-C5: The disc does not extend beyond the endplate margin. There is mild bilateral uncovertebral harvey nt osteoarthritis. There is mild bilateral facet joint osteoarthritis. There is no neural foraminal s tenosis. There is no central canal stenosis. C5-C6: The disc is bulging with superimposed left central extrusion. There is severe bilateral uncove rtebral joint osteoarthritis. There is mild bilateral facet joint osteoarthritis. There is mild right and moderate left neural foraminal stenosis. There is mild central canal stenosis with ventral inden tation of the spinal cord. C6-C7: The disc is bulging with superimposed left central extrusion. There is moderate bilateral unco vertebral joint osteoarthritis. There is mild bilateral facet joint osteoarthritis. There is mild lef t neural foraminal stenosis. There is mild central canal stenosis with ventral indentation of the spi nal cord. C7-T1: The disc does not extend beyond the endplate margin. There is no uncovertebral joint osteoarth ritis. There is mild bilateral facet joint osteoarthritis. There is no neural foraminal stenosis. The re is no central canal stenosis. IMPRESSION: 1. Moderate cervical spondylosis with interval worsening at C5-C6. Reviewed, dictated and finalized at location E.
== END 2024-01-11 09:39 ==
LOC: MICIMG 09:39
PROVIDERS: PCP Internal Medicine; Visit Provider Internal Medicine
DX: M54.2 Cervicalgia (principal); M25.512 Pain in left shoulder; M67.813 Other specified disorders of tendon, right shoulder; S46.812A Strain of other muscles, fascia and tendons at shoulder and upper arm level, left arm, initial encounter; M19.012 Primary osteoarthritis, left shoulder; M25.412 Effusion, left shoulder; M75.52 Bursitis of left shoulder; M43.02 Spondylolysis, cervical region
CPT/HCPCS: 72141; 73221

== ENCOUNTER 2024-01-23 15:41 | Outpatient (RCR) | payer MEDICARE, SELFPAY ==
--- NOTE | 2024-01-23 16:18 | OPREHPOC ---
Outpatient Therapy Plan of Care This is a Multidisciplinary Plan of Care that may contain components documented by all disciplines (PT, OT, and ST.) PT Problem 1 PT Problem #1 Knowledge Deficit PT Goal 1 Goal / Goal Update 1. independent and compliant with HEP. Target Visit 3 Progress Met PT Problem 2 PT Problem #2 Pain PT Goal 1 Goal / Goal Update 1. decrease pain at worst to 4/10 in the lower back. 1. decrease pain at worst to 4/10 or less in the cervical spine. Target Visit 23 Progress Not Met PT Problem 3 PT Problem #3 Impaired Range of Motion PT Goal 1 Goal / Goal Update 1. improve active lumbar flexion to toes. not met 2. improve active lumbar extension to 20 degrees. not met 3. improve active lumbar side bending to 30 degrees bilat. met 4. improve active bilateral cervical side bending to 35 degrees or better. not met 5. improve active bilateral cervical rotation to 75 degrees or better. not met Target Visit 23 Progress Partially Met PT Problem 4 PT Problem #4 Impaired Strength PT Goal 1 Goal / Goal Update 1. improve core strength to 4/5 or better. not met 2. improve bilateral hip strength to 5/5. not met 3. improve L shoulder strength to 4+/5 or better overall. met Target Visit 23 Progress Partially Met PT Problem 5 PT Problem #5 Impaired Functional Mobil PT Goal 1 Goal / Goal Update 1. patient to display oswestry score of 30% or less functional deficits. not met 2. patient to tolerate 1 hour or more standing/ walking to complete home and community activities without increased pain. not met 3. patient to report no radicular symptoms in the bilateral UE's. not met 4. patient to sleep through the night 4 nights a week without being woken up due to neck or back issues. not met 5. quick dash to display 30% or less functional deficits 6. NDI to display 30
--- NOTE | 2024-01-23 16:18 | PTOPDC ---
Assessment and note entered by JT File, PT Evaluation Information Assessment Status Discharge Diagnosis low back pain, lumbar spinal stenosis ICD-10 Condition Codes (PT) Pain in low back M54.50,M54.13 Onset 10/18/23 Subjective Information patient reports she feels About the same today. she reports she has had a follow up with her PCP who reports she needs neck and shoulder surgery. she is scheduled to be evaluated by Dr. Pimentel later this month for the neck, and Dr. Morocho next month for the L shoulder. she was told she will likely need surgery on the neck prior to the shoulder. she reports she still gets tingling into the L UE, and pain in the L shoulder. she reports the lower back has felt pretty good. Reported Pain Level Pain Score 7,0,7: Self Report Pain Score 8,8,0: Self Report Assessment PT Clinical Summary mrs. lyons presents to skilled PT services for her rd skilled PT visit. she continues to have paresthesia's in the L UE, pain in the neck, and pain in the L shoulder. she has achieved reduced pain and management of the lower back issues, but is limited in UE daily functional activities. patient has not made any progress towards goals since her last re-evaluation. at this time, patient should DC therapy, continue with HEP independent, and await plans from specialists regarding care of the neck and L shoulder. Plan of Care PT Services Indicated Yes
== END 2024-01-23 16:00 | disposition home or self-care (01) ==
LOC: CHSPT 15:41
PROVIDERS: Visit Provider Internal Medicine
DX: M54.50 Low back pain, unspecified (principal); M48.061 Spinal stenosis, lumbar region without neurogenic claudication; M47.816 Spondylosis without myelopathy or radiculopathy, lumbar region; M47.896 Other spondylosis, lumbar region
CPT/HCPCS: 97014; 97110; 97140; G0283

== ENCOUNTER 2024-06-01 08:31 | Outpatient (CLI) | payer MEDICARE, SELFPAY ==
[2024-06-01 09:10] LABS: Basophils Absolute Auto 0.09 K/mm3 (0.00-0.10); Basophils Percent Auto 1.1 % (0.0-1.0); Eosinophils Absolute Auto 0.27 K/mm3 (0.02-0.50); Eosinophils Percent Auto 3.4 % (1.0-6.0); Hematocrit 42.9 % (35.0-49.0); Hemoglobin 14.5 g/dL (12.0-15.0); Immature Granulocyte Absolute 0.02 K/mm3 (0.00-0.00); Immature Granulocyte Percent A 0.3 % (0.0-0.0); Lymphocytes Absolute Auto 2.45 K/mm3 (1.10-4.50); Lymphocytes Percent Auto 31.1 % (18.0-42.0); Mean Corpuscular HGB Conc 33.8 g/dL (32-36); Mean Corpuscular Hemoglobin 27.7 pg (27.0-31.0); Mean Corpuscular Volume 81.9 fL (78.0-102.0); Mean Platelet Volume 8.9 fl (9.2-11.8); Monocytes Absolute Auto 0.55 K/mm3 (0.10-0.90); Neutrophils Absolute Auto 4.49 K/mm3 (1.70-7.20); Neutrophils Percent Auto 57.1 % (50.0-70.0); Platelet Count Result 428 K/mm3 (150-420); Red Blood Count 5.24 M/mm3 (4.20-5.40); Red Cell Distribution Width 12.8 % (11.6-14.4); White Blood Count 7.9 K/mm3 (4.8-10.8)
[2024-06-01 09:22] LABS: Hemoglobin A1C 6.2 % (<5.7)
[2024-06-01 10:20] LABS: Alanine Aminotransferase 35 U/L (14-59); Albumin Level 4.4 g/dL (3.4-5.0); Alkaline Phosphatase 90 U/L (46-116); Anion Gap 7 mmol/L (4-12); Aspartate Amino Transferase 15 U/L (15-37); Bilirubin,Total 0.7 mg/dL (0.00-1.00); Blood Urea Nitrogen 14 mg/dL (7-18); Calcium 10.5 mg/dL (8.5-10.1); Carbon Dioxide 33 mmol/L (21-32); Chloride 96 mmol/L (98-108); Cholesterol 200 mg/dL (0-200); Creatine Kinase 81 U/L (26-192); Estimated Glomerular Filt Rate > 60; Free T3 3.09 pg/mL (2.18-3.98); Free T4 Free Thyroxine 0.92 ng/dL (0.76-1.46); Glucose 133 mg/dL (70-99); HDL Direct 47 mg/dL (40-60); LDL Cholesterol Calculated 92 mg/dL (<130); Osmolality Calculated 284 mOsm/kg (285-295); Potassium 4.5 mmol/L (3.5-5.1); Sodium 136 mmol/L (136-145); Total Protein 7.6 g/dL (6.4-8.2); Triglycerides 306 mg/dL (0-150)
== END 2024-06-01 08:32 | disposition home or self-care (01) ==
LOC: CHSLAB 08:34
PROVIDERS: PCP Internal Medicine; Visit Provider Internal Medicine
DX: I10 Essential (primary) hypertension (principal); R73.01 Impaired fasting glucose; E03.4 Atrophy of thyroid (acquired); E78.5 Hyperlipidemia, unspecified
CPT/HCPCS: 36415; 80053; 80061; 82550; 83036; 84439; 84443; 84481; 85025

== ENCOUNTER 2024-09-08 11:54 | Outpatient (CLI) | payer MEDICARE, OTHER, SELFPAY ==
--- NOTE | ~2024-09-08 | MM_ITS ---
EXAMINATION: MM screening moisés BI w anita HISTORY: Screening TECHNIQUE: Craniocaudal and mediolateral oblique 3-D tomosynthesis images were obtained and synthetic 2-D images were generated. CAD analysis was submitted and interpreted. COMPARISON: Comparison to multiple prior studies sequentially, with oldest reviewed study dated 12/10. BREAST PARENCHYMAL COMPOSITION: Not dense: There are scattered areas of fibroglandular density. FINDINGS: There is no evidence of suspicious mass, calcification, or architectural distortion to sugg est malignancy in either breast. There has been no suspicious interval change. IMPRESSION: 1. No mammographic evidence of malignancy. 2. Recommend routine screening mammography in one year. BI-RADS Category 1: Negative Reviewed, dictated and finalized at location A.
--- NOTE | ~2024-09-08 | DEXA_ITS ---
Bone Density Report Name: JYOTI CERNA Age: 63 Sex: Female Ethnicity: White Date of : 1960 Indication: postmenopausal; screening for osteoporosis; prior fracture; Referring Provider: Carroll Benz Study: Bone densitometry was performed. Exam Date: September 08, 2024 Accession number: [id number] Bone Density: Region BMD T-score Z-score Classification AP Spine(L2, L3, L4) 1.400 2.9 4.7 Normal Femoral Neck (Left) 0.886 0.3 1.8 Normal Total Hip (Left) 1.139 1.6 2.8 Normal World Health Organization criteria for BMD impression classify patients as: Normal (T-score at or above -1.0), Osteopenia (T-score between -1.0 and -2.5), or Osteoporosis (T-score at or below -2.5). 10-year Fracture Risk: FRAX not reported because: All T-scores for Spine Total, Hip Total, Femoral Neck at or above -1.0 Prior hip or vertebral fracture Clinical Information Provided by Patient: Have had a previous hip or vertebral fracture Has had a low trauma fracture Has used the following medications: Vitamin D, multi Patient maximum height was 64. Menopause Age: 54 No regular weight bearing exercise Drinks caffeinated beverages Onset of menses at age 12 Number of children 1 Missed period for more than 6 months in a row Impression: The patient has normal bone mass. The patient has risk factors, including: previous fracture. Discussion: INCREASED RISK OF FRACTURE DUE TO HISTORY OF FRACTURE. The patient's previous fracture puts the patient at high risk of a future fracture. In untreated patients, the risk of osteoporotic fracture increases approximately two-fold for each 1.0 SD decrease in T-score. Low bone density is not the only risk factor for fracture; also consider factors such as patient's age, frailty or poor health, risk of falling, risk of injury, previous osteoporotic fracture, family history of osteoporosis, cigarette smoking, low body weight, etc. Not everyone with a low trauma fracture has osteoporosis; osteomalacia and other metabolic bone disorders should also be considered. Patients who have osteoporosis should be evaluated for specific diseases and conditions (secondary causes) that may cause or contribute to bone loss and fracture risk. National Osteoporosis Foundation (NOF) recommends pharmacologic intervention for patients with a prior hip or vertebral fracture regardless of BMD T-score. The patient should follow a healthful lifestyle (good nutrition with adequate calcium and vitamin D, and appropriate weight-bearing exercise). Follow-Up: Consider a repeat BMD and Vertebral Fracture Assessment (VFA) exam in 2 years or sooner if medically necessary, to reassess this patient's status. Reported by: LARISSA on 09/08/2024 12:32:00 PM. Reviewed, dictated and finalized at location A.
--- OUTSIDE RECORDS SUMMARY | 2024-09-08 13:19 | XMS_ITS | Clinical Summary ---
Author Organization [facility] Address [address] [place] [address] Care Team Providers Care Used Car Make Ready Mechanic Name Role Phone Unavailable Primary Care Provider Unavailabl e Social History Tobacco Use Types Packs/Day Years Used Date Smoking Tobacco: Never Comments Unknown Sex and Gender Information Value Date Recorded Sex Assigned at Not on file Legal Sex Female 10:24 PM CDT Gender Identity Not on file Sexual Orientation Not on file Last Filed Vital Signs Vital Sign Reading Time Taken Comments Blood Pressure 130/80 07/30/2012 3:32 PM WAFER SLICER Pulse 104 07/30/2012 3:32 PM WAFER SLICER Temperature - - Respiratory Rate - - Oxygen Saturation - - Inhaled Oxygen Concentration - - Weight 111.1 kg (245 lb) 07/30/2012 3:32 PM WAFER SLICER Height 162.6 cm (5' 4 ) 07/30/2012 3:32 PM WAFER SLICER Body Mass Index 42.05 07/30/2012 3:32 PM WAFER SLICER Plan of Treatment Health Maintenance Due Date Last Done Comments Cervical Cancer Screening Pa p Smear (Age 30 to 64) Every 3 Years 1959 Colorectal Cancer Screening Colonoscopy (10 Years) 1960 Annual Physical 09/17/1962 Hepatitis C 09/17/1977 DTaP, Tdap and Td Vaccines ( 1 - Tdap) 09/17/1978 Cervical Cancer Screening Pa p with HPV Testing (Age 30 to 64) Every 5 Years 09/17/1989 Cervical Cancer Screening with HPV 09/17/1989 Mammogram Screening 1999 Zoster Vaccines (1 of 2) 09/17/2009 COVID-19 Vaccine ( - 2023-2 5 season) 2024 RSV Immunization or 60+ Years (1 - 1-dose 75+ series) 09/17/2034 Meningococcal B Vaccine Aged Out No l onger eligible based on patient's age to complete this topic Meningococcal Vaccine Aged Out No fermin neto eligible based on patient's age to complete this topic Pneumococcal Vaccine: Pediat rics (0 to 5 Years) and At-Risk Patients (6 to 64 Years) Aged Out No longer eligible b ased on patient's age to complete this topic RSV Immunizations Under 20 Months Aged Out No longer eligible based on patient's age to complete this topic Insurance [facility]
--- OUTSIDE RECORDS SUMMARY | 2024-09-08 13:19 | XMS_ITS | Clinical Summary ---
Author Organization [facility] Address [address] [place] [address] Care Team Providers Care Plaster Maker Name Role Phone Carroll Benz MD Primary Care Provider + [phone] Allergies Active Allergy Reactions Criticality Noted Date Comments Ampicillin Hives Medium Reaction: Hives, Medications metoprolol XL (TOPROL-XL) 50 mg 24 hr tablet Take 50 mg by mouth daily. Active triamterene-hyd roCHLOROthiazid e (MAXZIDE,DYAZID E) 37.5-25 mg per capsule Take 1 capsule by mouth every morning. Active pravastatin (PRAVACHOL) 40 mg tablet Take 40 mg by mouth daily. Active DULoxetine DR (CYMBALTA) 60 mg capsule Take 60 mg by mouth daily. Active omeprazole (PriLOSEC) 20 mg capsule Take 20 mg by mouth daily. Active SYNTHROID 200 mcg tablet 02/11/2019 Active Active Problems Problem Noted Date Diagnosed Date Morbid obesity with BMI of 40.0-44.9, adult 02/2017 Assessment & Plan (05/06/2019 2:[address] JUDGE): Encourage a weight loss program such as Weight Watchers incorporating dietary changes and aerobic / weight-bearing exercise at least 4-5 times per week, for at least 30-45 minute sessions. Assessment & Plan (12/09/2016 9:54 PM CDT): Encourage a weight loss program such as Weight Watchers incorporating dietary changes and aerobic / weight-bearing exercise at least 4-5 times per week, for at least 30-45 minute sessions. Well woman exam 12/09/2016 Assessment & Plan (12/09/2016 9:56 PM CDT): Await pap results; Enc dietary calcium equaling 1200 mg/day; vitamin D3, 1-2000 IUs/day; call office with any gyne health issues; RTO in 1 / two years/prn. PMB (postmenopausal bleeding) 12/09/2016 Assessment & Plan (01/13/2017 9:03 PM CDT): Await EMB results; enc to call office if she has any more vaginal bleeding. Assessment & Plan (12/09/2016 9:57 PM CDT): Schedule a pelvic ultrasound and await results; pending results, most likely will schedule an endometrial biopsy. Surgical History Surgery Date Site/Laterality Comments CARPAL TUNNEL RELEASE 06/03/2001 - 06/02/2002 Carpal tunnel release TONSILLECTOMY 06/03/1977 - 06/02/1978 Tonsillectomy KNEE ARTHROPLASTY Bilateral Knee replacement REPLACEMENT TOTAL KNEE BILATERAL REPLACEMENT TOTAL HIP LATERAL POSITION Medical History Medical History Date Comments Disorder of thyroid Thyroid dise ase Arthritis Arthritis Hypertension Hypertension Obesity High cholesterol Family History Medical History Relation Name Comments Diabetes type II Father Diabetes -T ype II; Hypertension Father Hypertension; Prostate cancer Father Cancer -pros garcia; Diabetes type II Maternal Grandmother Yudi betes -Type II; Diabetes type II Mother Diabetes -T ype II; Uterine cancer Sister 1 Cancer -uteri ne; Seizures Sister 2 Seizure disorde r; Relation Name Status Comments Father Maternal Grandmother Mother Sister 1 Sister 2 Social History Tobacco Use Types Packs/Day Years Used Date Smoking Tobacco: Never Smokeless Tobacco: Never Alcohol Use Standard Drinks/Week Comments No 0 (1 standard drink = 0.6 oz pur e alcohol) PHQ-2 Answer Date Recorded PHQ-2 Score 0 05/06/2019 Comments No Sex and Gender Information Value Date Recorded Sex Assigned at Not on file Legal Sex Female 8:[address] Gender Identity Not on file Sexual Orientation Not on file Obstetrics History Para Term AB IAB SAB Ectopic Multiple Livin g Live Births 1 1 Date Outcome GA Total Labor Labor/2nd/3rd Weight Sex Type Anes PTL Mary A1 A5 Name Clin U Y Last Filed Vital Signs Vital Sign Reading Time Taken Comments Blood Pressure 130/72 05/06/2019 1:[address] JUDGE Pulse 81 12/28/2014 3:00 PM CDT Temperature - - Respiratory Rate - - Oxygen Saturation - - Inhaled Oxygen Concentration - - Weight 108.4 kg (239 lb) 05/06/2019 1:[address] JUDGE Height 162.6 cm (5' 4 ) 05/06/2019 1:[address] JUDGE Body Mass Index 41.02 05/06/2019 1:[address] JUDGE Plan of Treatment Not on file Insurance [facility] CHOICE PLUS [facility] HMO/PPO Address: [facility] [id number] [place] [address] Care Teams Plaster Maker Relationship Specialty Start Date End Date Carroll Benz MD [address] [place] [address] PCP - General 12/28/14
--- OUTSIDE RECORDS SUMMARY | 2024-09-08 13:19 | XMS_ITS | Referral Summary ---
Author Organization [facility] Address [address] [place] [address] Care Team Providers Care Radio Despatcher Name Role Phone Carroll Benz MD Primary Care Provider + [phone] Allergies Active Allergy Reactions Criticality Noted Date [...] 02/2017 Assessment & Plan (05/06/2019 2:28 PM CAT SCAN TECH): Encourage a weight loss program such as [...] most likely will schedule an endometrial biopsy. Social History Tobacco Use Types Packs/Day Years Used Date Smoking Tobacco: Never Smokeless Tobacco: Never Alcohol Use Standard Drinks/Week Comments No 0 (1 standard drink = 0.6 oz pur e alcohol) PHQ-2 Answer Date Recorded PHQ-2 Score 0 05/06/2019 Comments No Sex and Gender Information Value Date Recorded Sex Assigned at Not on file Legal Sex Female 8:09 AM CAT SCAN TECH Gender Identity Not on file Sexual Orientation Not on file Last Filed Vital Signs Vital Sign Reading Time Taken Comments Blood Pressure 130/72 05/06/2019 1:31 PM CAT SCAN TECH Pulse 81 12/28/2014 3:00 PM CDT Temperature - - Respiratory Rate - - Oxygen Saturation - - Inhaled Oxygen Concentration - - Weight 108.4 kg (239 lb) 05/06/2019 1:31 PM CAT SCAN TECH Height 162.6 cm (5' 4 ) 05/06/2019 1:31 PM CAT SCAN TECH Body Mass Index 41.02 05/06/2019 1:31 PM CAT SCAN TECH Plan of Treatment Not on file Insurance [facility] CHOICE PLUS Care Teams Radio Despatcher Relationship Specialty Start Date End Date Carroll Benz MD [address] [place] [address] PCP - General 12/28/14
--- OUTSIDE RECORDS SUMMARY | 2024-09-08 13:19 | XMS_ITS | Patient Health Record ---
Author Organization [facility] Address [address] [place], [place] [id number] Care Team Providers Care Metal Finisher Name Role Phone FRANCESCO CORREIA Unavailable [phone] Carroll Benz Unavailable Unavailable Allergies Allergen (clinical drug ingredient) Drug/Non Drug Allergy documented on EMR Reaction Allergy Type Onset Date Status Substance with penicillin structure and antibacterial mechanism of action (substance) Penicillins Unknown Drug Allergy 06/13/2015 active Reason For Referral No Information Medications Medication SIG (Take, Route, Frequency, Duration) Notes Start Date End Date Status Metoprolol Tartrate 50 MG Oral Tablet ORAL metoprolol tartrate 50 MG Oral TabletOriginal Medicationmetoprolol tartrate 50 MG Oral Tablet *Reorder from [employer] for eRx and Interaction Alerts* 6 Active Gabapentin 300 MG Oral Capsule ORAL gabapentin 300 MG Oral CapsuleOriginal Medicationgabapentin 300 MG Oral Capsule *Reorder from [employer] for eRx and Interaction Alerts* 6 Active duloxetine 60 MG Delayed Release Oral Capsule ORAL duloxetine 60 MG Delayed Release Oral CapsuleOriginal Medicationduloxetine 60 MG Delayed Release Oral Capsule *Reorder from [employer] for eRx and Interaction Alerts* 6 Active levothyroxine sodium 0.125 MG Oral Tablet ORAL levothyroxine sodium 0.125 MG Oral TabletOriginal Medicationlevothyroxine sodium 0.125 MG Oral Tablet *Reorder from [employer] for eRx and Interaction Alerts* 6 Active omeprazole 10 MG Delayed Release Oral Capsule [Prilosec] ORAL omeprazole 10 MG Delayed Release Oral Capsule [Prilosec]Original Medicationomeprazole 10 MG Delayed Release Oral Capsule [Prilosec] *Reorder from [employer] for eRx and Interaction Alerts* 6 Active Plan Of Treatment No Information Insurance Providers Payer Name Payer Address Payer Phone Subscriber Number Group Number Insured Name Patient Relationship to Insured Coverage Start Date Coverage End Date Medicare Part B [place] [address] [place] [address] [id number] JYOTI CERNA Self - patient is the insured [facility] ([facility]) ATTN CLAIMS [address] [place] [address] [id number] JYOTI CERNA Self - patient is the insured Medical (General) History Medical History History ICD Code acid reflux artificial joint neuropathy bronchitis Skin Disorder Back Trouble Heart Disease hypertension Surgical History Surgery Date(Month/Year) Hernia Hip Replacement Knee Surgery Carpal Tunnel release
--- OUTSIDE RECORDS SUMMARY | 2024-09-08 13:19 | XMS_ITS ---
Author Organization [facility] Address [address] [place], [place] [id number] Care Team Providers Care Physician President Name Role Phone FRANCESCO CORREIA Unavailable [phone] Carroll Benz Unavailable Unavailable SHAHAB MORENO Unavailable [phone] REASON FOR VISIT Ft better Encounters Encounter Location Date Provider Diagnosis [facility] [address] [place], [place] [id number] 05/16/2023 SHAHAB MORENO Plan Of Treatment No Information Progress Notes * JYOTI CERNA GDOB: 0 (63 yo F)Acc No.[id number]:05/16/2023 Patient: JYOTI MANN Provider: Ashwini MORENO :1960 A ge:62 Y S ex:Female Date:05/16/2023 Address:[address] [place], [place] [id number] Subjective: * Chief Complaints: * 1 . Ft better. * Medical History: Objective: * Vitals: Assessment: Plan: * Treatment: * Billing Information: * Visit Code: * Procedure Codes: * Electronic signature of GUY MORENO DPM on 09/08/2024 at 01:19 PM CDT Sign off status: Pending * Provider: Ashwini MORENO Date: 1 07/17/2022 Generated for Zari oviedo/Luis M/eTransmitting on: 0 09/08/2024 01:19 PM CDT
--- OUTSIDE RECORDS SUMMARY | 2024-09-08 13:19 | XMS_ITS ---
Author Organization [facility] Address [address] [place], [place] [id number] Care Team Providers Care Frame Stripper Name Role Phone FRANCESCO CORREIA Unavailable [phone] Carroll Benz Unavailable Unavailable SHAHAB MORENO Unavailable [phone] REASON FOR VISIT Heel pain Medications Medication SIG (Take, Route, Frequency, Duration) Notes Start Date End Date Status Metoprolol Tartrate 50 MG Oral Tablet ORAL metoprolol tartrate 50 MG Oral TabletOriginal Medicationmetoprolol tartrate 50 MG Oral Tablet *Reorder from [facility] for eRx and Interaction Alerts* 6 Active Gabapentin 300 MG Oral Capsule ORAL gabapentin 300 MG Oral CapsuleOriginal Medicationgabapentin 300 MG Oral Capsule *Reorder from [facility] for eRx and Interaction Alerts* 6 Active duloxetine 60 MG Delayed Release Oral Capsule ORAL duloxetine 60 MG Delayed Release Oral CapsuleOriginal Medicationduloxetine 60 MG Delayed Release Oral Capsule *Reorder from [facility] for eRx and Interaction Alerts* 6 Active levothyroxine sodium 0.125 MG Oral Tablet ORAL levothyroxine sodium 0.125 MG Oral TabletOriginal Medicationlevothyroxine sodium 0.125 MG Oral Tablet *Reorder from [facility] for eRx and Interaction Alerts* 6 Active omeprazole 10 MG Delayed Release Oral Capsule [Prilosec] ORAL omeprazole 10 MG Delayed Release Oral Capsule [Prilosec]Original Medicationomeprazole 10 MG Delayed Release Oral Capsule [Prilosec] *Reorder from [facility] for eRx and Interaction Alerts* 6 Active Meloxicam 7.5 MG 1 tablet Orally Once a day for 14 days 3 05/16/20 23 Active Vital Signs Weight 232 lbs 05/02/2023 Weight-kg 105.23 kg 05/02/2023 Height 64.00 in 05/02/2023 Height-cm 162.56 cm 05/02/2023 BMI 39.82 kg/m2 05/02/2023 Encounters Encounter Location Date Provider Diagnosis [facility] [address] [place], [place] [id number] 05/02/2023 SHAHAB MORENO Achilles tendinitis, left leg M76.62 ; Short Achilles tendon (acquired), left ankle M67.02 ; Localized edema R60.0 ; Pain in left ankle and joints of left foot M25.572 and Flat foot [pes planus] (acquired), left foot M21.42 Assessments Encounter Date Diagnosis (ICD Code) Assessment Notes Treatment Notes Treatment Clinical Notes Section Notes 05/02/2023 Achilles tendinitis, left leg (ICD-10 - M76.62) ACHILLES TENDONITIS: I discussed anti-inflammatory treatment options and various means of immobilization with the patient. I educated the patient on icing and stretching, supportive shoegear, and the use of orthotic devices, padding, and bracing. Rx meloxicam. Recommend use of heel lifts to alleviate tightness to achilles complex bilateral foot. 05/02/2023 Short Achilles tendon (acquired), left ankle (ICD-10 - M67.02) The patient was evaluated and educated regarding compression therapy and the importance of wearing their compression hose to prevent ulceration and worsening skin atrophy in their legs. The patient was also educated about the importance of being compliant wearing their hose for DVT prevention. 05/02/2023 Localized edema (ICD-10 - R60.0) 05/02/2023 Pain in left ankle and joints of left foot (ICD-10 - M25.572) 05/02/2023 Flat foot [pes planus] (acquired), left foot (ICD-10 - M21.42) Patient educated on etiology and treatment options for flexible flat foot deformity. Educated patient on how a flexible flat foot deformity can in turn result in pathology such as hammer toe, bunions, equinus, neuromas. Recommend use of custom foot inserts to help alleviate plantar peak pressures and accomodate for digital deformity to feet. 05/02/2023 Other Patient educate d on risks and aggravating factors of PVD, including conservative treatment options such as a diet and exercise regimen to aid in slowing progression of vascular disease The patient was educated regarding how to mechanically stabilize their deformity. The patient was given education about shoe recommendations specific for the condition. The patient was educated about custom orthotics and how appropriate shoes and orthotics can prevent further worsening of the deformity. The patient was educated about how bad shoe habits can worsen the condition. NSAIDS, P.T., injections and other conservative treatments were discussed. Both surgical and non surgical treatments were discussed, but conservative options were emphasized. Aseptic debridement of elongated thickened nails x 10 using sterile nippers, nails were debrided in length and thickness by 30% utilizing a nail nipper without incident. The patient was educated regarding all treatment options that include topical and oral antifungal treatments. I discussed the options of taking a sample of the nail to confirm diagnosis. Nail clippings were not sent for pathology analysis. The patient was educated why and how the fungal infection evolved in their feet and the patient was given information regarding how to prevent further infection. The patient was told to keep feet dry and change socks. The patient was told to be careful with old shoes and excessive sweating. The patient was educated regarding both OTC and prescription treatments. Plan Of Treatment Medication Medication Name Sig Start Date Stop Date Notes Meloxicam 7.5 MG 1 tablet Orally Once a day for 14 days 05/16/2023 Treatment Notes Assessment Notes Achilles tendinitis, left leg ACHILLES T ENDONITIS: I discussed anti-inflammatory treatment options and various means of immobilization with the patient. I educated the patient on icing and stretching, supportive shoegear, and the use of orthotic devices, padding, and bracing. Rx meloxicam. Recommend use of heel lifts to alleviate tightness to achilles complex bilateral foot. Short Achilles tendon (acqui red), left ankle The patient was evaluated and educated regarding compression therapy and the importance of wearing their compression hose to prevent ulceration and worsening skin atrophy in their legs. The patient was also educated about the importance of being compliant wearing their hose for DVT prevention. Flat foot [pes planus] (acqu ired), left foot Patient educated on etiology and treatme nt options for flexible flat foot deformity. Educated patient on how a flexible flat foot deformity can in turn result in pathology such as hammer toe, bunions, equinus, neuromas. Recommend use of custom foot inserts to help alleviate plantar peak pressures and accomodate for digital deformity to feet. Other Patient educated on risks and aggravating factors of PVD, including conservative treatment options such as a diet and exercise regimen to aid in slowing progression of vascular disease The patient was educated regarding how to mechanically stabilize their deformity. The patient was given education about shoe recommendations specific for the condition. The patient was educated about custom orthotics and how appropriate shoes and orthotics can prevent further worsening of the deformity. The patient was educated about how bad shoe habits can worsen the condition. NSAIDS, P.T., injections and other conservative treatments were discussed. Both surgical and non surgical treatments were discussed, but conservative options were emphasized. Aseptic debridement of elongated thickened nails x 10 using sterile nippers, nails were debrided in length and thickness by 30% utilizing a nail nipper without incident. The patient was educated regarding all treatment options that include topical and oral antifungal treatments. I discussed the options of taking a sample of the nail to confirm diagnosis. Nail clippings were not sent for pathology analysis. The patient was educated why and how the fungal infection evolved in their feet and the patient was given information regarding how to prevent further infection. The patient was told to keep feet dry and change socks. The patient was told to be careful with old shoes and excessive sweating. The patient was educated regarding both OTC and prescription treatments. Next Appt Details Follow Up: 2 Weeks, Reason: Progress Notes * JYOTI CERNA GDOB: 0 (62 yo F)Acc No.[id number]:05/02/2023 Patient: JYOTI MANN Provider: Ashwini MORENO :1960 A ge:62 Y S ex:Female Date:05/02/2023 Address:[address] [place] [address] Subjective: * Chief Complaints: * 1 . Heel pain. * HPI: H PI: New Complaint E stablished patient presents with a new complaint. P atient complains of an issue to her left heel .Pt states she has constant pain radiating up the back of her heel. D uration of problem is a few months. Patient denies any constitutional symptoms at this time. Patient denies any recent trauma to the foot or ankle. Patient states the pain seems to be worse with first step out of bed in the morning or the first step after long periods of inactivity. M A: As. * ROS: G eneral / Constitutional: Patient denies w eakness. R espiratory: Patient denies c hronic cough, shortness of breath, sputum production. C ardiovascular: Patient denies c hest pain, history of OR, irregular heartbeat. M usculoskeletal: Patient complains of j oint stiffness, flat feet/ planus, joint pain. P eripheral Vascular: Patient denies b lanching of skin, cold extremities, decreased sensation in extremities. S kin: Patient complains of f ungal nails, n ail changes. N eurologic: Patient denies d izziness, gait abnormality, headache. * Medical History: * Medications: T aking Metoprolol Tartrate 50 MG Oral Tablet ORAL , Notes to Pharmacist: metoprolol tartrate 50 MG Oral TabletOriginal Medicationmetoprolol tartrate 50 MG Oral Tablet *Reorder from [facility] for eRx and Interaction Alerts*, Taking Gabapentin 300 MG Oral Capsule ORAL , Notes to Pharmacist: gabapentin 300 MG Oral CapsuleOriginal Medicationgabapentin 300 MG Oral Capsule *Reorder from [facility] for eRx and Interaction Alerts*, Taking duloxetine 60 MG Delayed Release Oral Capsule ORAL , Notes to Pharmacist: duloxetine 60 MG Delayed Release Oral CapsuleOriginal Medicationduloxetine 60 MG Delayed Release Oral Capsule *[facility]*, Taking levothyroxine sodium 0.125 MG Oral Tablet ORAL , Notes to Pharmacist: levothyroxine sodium 0.125 MG Oral TabletOriginal Medicationlevothyroxine sodium 0.125 MG Oral Tablet *[facility]*, Taking omeprazole 10 MG Delayed Release Oral Capsule [Prilosec] ORAL , Notes to Pharmacist: omeprazole 10 MG Delayed Release Oral Capsule [Prilosec]Original Medicationomeprazole 10 MG Delayed Release Oral Capsule [Prilosec] *Reorder from [facility] for eRx and Interaction Alerts* Objective: * Vitals: W t:232lbs, Wt-k.23 kg, Ht: 64.00 in, Ht-cm: 162.56 cm, BMI:39.82Index, Body Surface Area: 2.18. * Examination: P hysical Examination: V ascular: Dorsalis Pedis pulse noted at 2/4 right foot and 2/4 left foot and Posterior Tibial pulse noted at 2/4 right foot and 2/4 left foot, Capillary refill times noted to be less than three seconds x ten, Temperature gradient noted to be warm to cool to bilateral foot, pedal hair present to bilateral foot and no varicosities are noted Dermatologic: there are no open lesions, no signs of active clinical infection, no erythema noted, no ecchymoses, nails are at hygienic length during todays visit, interdigital spaces clean dry and intact Neurology: protective sensation intact to light touch bilateral digits one through five, vibratory sensation intact to first metatarsophalangeal joint bilaterally Musculoskeletal: pain to palpation left lower extremity at achilles insertion site, pain along distal course of achilles tendon, pain with resisted ankle joint plantarflexion, ankle joint range of motion 0 degree with knee extended bilateral side, arch height 2/5 NWB bilateral 1/5 WB, no calf pain noted b/l, too many toes signs noted on weight bearing exam. Assessment: * Assessment: 1. A chilles tendinitis, left leg - M76.62 (Primary) 2 . S hort Achilles tendon (acquired), left ankle - M67.02 3 . L ocalized edema - R60.0 4 . P ain in left ankle and joints of left foot - M25.572 5 . F lat foot [pes planus] (acquired), left foot - M21.42 Plan: * Treatment: 2. S hort Achilles tendon (acquired), left ankle Notes: The patient was evaluated and educated regarding compression therapy and the importance of wearing their compression hose to prevent ulceration and worsening skin atrophy in their legs. The patient was also educated about the importance of being compliant wearing their hose for DVT prevention. 3. F lat foot [pes planus] (acquired), left foot Notes: Patient educated on etiology and treatment options for flexible flat foot deformity. Educated patient on how a flexible flat foot deformity can in turn result in pathology such as hammer toe, bunions, equinus, neuromas. Recommend use of custom foot inserts to help alleviate plantar peak pressures and accomodate for digital deformity to feet. 4. O thers Start Meloxicam Tablet, 7.5 MG, 1 tablet, Orally, Once a day, 14 days, 14. Notes: Patient educated on risks and aggravating factors of PVD, including conservative treatment options such as a diet and exercise regimen to aid in slowing progression of vascular disease The patient was educated regarding how to mechanically stabilize their deformity. The patient was given education about shoe recommendations specific for the condition. The patient was educated about custom orthotics and how appropriate shoes and orthotics can prevent further worsening of the deformity. The patient was educated about how bad shoe habits can worsen the condition. NSAIDS, P.T., injections and other conservative treatments were discussed. Both surgical and non surgical treatments were discussed, but conservative options were emphasized. Aseptic debridement of elongated thickened nails x 10 using sterile nippers, nails were debrided in length and thickness by 30% utilizing a nail nipper without incident. The patient was educated regarding all treatment options that include topical and oral antifungal treatments. I discussed the options of taking a sample of the nail to confirm diagnosis. Nail clippings were not sent for pathology analysis. The patient was educated why and how the fungal infection evolved in their feet and the patient was given information regarding how to prevent further infection. The patient was told to keep feet dry and change socks. The patient was told to be careful with old shoes and excessive sweating. The patient was educated regarding both OTC and prescription treatments. * Follow Up: 2 Weeks * Billing Information: * Visit Code: 98242 Office Visit, Est Pt., Level 3. * Procedure Codes: * DDED FIRMWARE DEVELOPER Sign off status: Completed true * Provider: Ashwini MORENO Date: 07/02/2022 Generated for Zari oviedo/Luis M/Dinaitting on: 0 09/08/2024 01:19 PM CDT History and Physical Notes * HPI (History of Present Illness) Category Sub-Category Detail Notes Category Not es HPI New Complaint Established dolly ent presents with a new complaint.Patient complains of an issue to her left heel .Pt states she has constant pain radiating up the back of her heel.Duration of problem is a few months. Patient denies any constitutional symptoms at this time. Patient denies any recent trauma to the foot or ankle. Patient states the pain seems to be worse with first step out of bed in the morning or the first step after long periods of inactivity. MA: As Examination Category Sub-Category Detail Notes Category Not es Physical Examination Vascular: Dorsalis Pedis pulse noted at 2/4 right foot and 2/4 left foot and Posterior Tibial pulse noted at 2/4 right foot and 2/4 left foot, Capillary refill times noted to be less than three seconds x ten, Temperature gradient noted to be warm to cool to bilateral foot, pedal hair present to bilateral foot and no varicosities are noted Dermatologic: there are no open lesions, no signs of active clinical infection, no erythema noted, no ecchymoses, nails are at hygienic length during todays visit, interdigital spaces clean dry and intact Neurology: protective sensation intact to light touch bilateral digits one through five, vibratory sensation intact to first metatarsophalangeal joint bilaterally Musculoskeletal: pain to palpation left lower extremity at achilles insertion site, pain along distal course of achilles tendon, pain with resisted ankle joint plantarflexion, ankle joint range of motion 0 degree with knee extended bilateral side, arch height 2/5 NWB bilateral 1/5 WB, no calf pain noted b/l, too many toes signs noted on weight bearing exam
== END 2024-09-08 11:55 | disposition home or self-care (01) ==
PROVIDERS: PCP Internal Medicine; Visit Provider Internal Medicine
DX: Z12.31 Encounter for screening mammogram for malignant neoplasm of breast (principal); Z78.0 Asymptomatic menopausal state
CPT/HCPCS: 77063; 77067; 77080

== ENCOUNTER 2024-09-23 07:35 | Outpatient (CLI) | payer MEDICARE, OTHER, SELFPAY ==
--- NOTE | ~2024-09-23 | MR_ITS ---
MRI of the left ankle Clinical history: Achilles tendon rupture Technique: Coronal proton-density and proton-density fat-sat images, axial proton-density and proton- density fat-sat images, and sagittal proton-density and proton-density fat-sat images were acquired. COMPARISON: 11/22/2023 Findings: Syndesmotic ligaments are intact. Anterior and posterior talofibular ligaments, and calcane ofibular ligament are intact. Deltoid ligament is intact. Medial flexor tendons, peroneal tendons, and anterior extensor tendons are intact. There is complete rupture of the Achilles tendon, with retraction of the torn tendon, with 9 cm gap present (sagittal i mage 17). This tear may be chronic in nature given that there is no significant stranding soft tissue edema or fluid about the torn tendon. Visualized plantar fascia intact. There is a probable multiseptated ganglion cyst extending from the sinus Tarsi into the lateral subcutaneous soft tissues. There is no osteochondral lesion of the talar dome. Bone marrow signals are unremarkable. There are m ild degenerative changes at the midfoot. Impression: Complete tear of the Achilles tendon with 9 cm gap/retraction. This tear is presumed to be chronic in nature given lack of soft tissue edema or fluid about the tear. Multiseptated ganglion cyst extending from the sinus Tarsi into the lateral subcutaneous soft tissues . Reviewed, dictated and finalized at location M. Impression: Complete tear of the Achilles tendon with 9 cm gap/retraction. This tear is pre sumed to be chronic in nature given lack of soft tissue edema or fluid about th e tear. Multiseptated ganglion cyst extending from the sinus Tarsi into the lateral sub cutaneous soft tissues.
== END 2024-09-23 07:36 | disposition home or self-care (01) ==
LOC: MICIMG 07:37
PROVIDERS: PCP Internal Medicine; Visit Provider Podiatrist Foot & Ankle Surgery
DX: M66.362 Spontaneous rupture of flexor tendons, left lower leg (principal); I73.89 Other specified peripheral vascular diseases; M67.472 Ganglion, left ankle and foot
CPT/HCPCS: 73721

== ENCOUNTER 2024-11-12 08:30 | Outpatient (CLI) | payer MEDICARE, OTHER, SELFPAY ==
--- NOTE | ~2024-11-12 | US_ITS ---
US arterial ankle brachial ind INDICATION: Peripheral arterial disease TECHNIQUE: Segmental pressures and plethysmographic and Doppler waveforms of the brachial and lower e xtremity arteries were obtained. COMPARISON: None. FINDINGS: Right and left brachial artery pressures of 159 mm Hg and 147 mm Hg, respectively, are concordant (no rmal difference <= 30 mmHg). The right ankle-brachial index (MANPREET) is 1.11 (normal >= 0.9-1.0). The right great toe-brachial index (TBI) is 0.96 (normal >= 0.60). The left MANPREET is 1.04. The left TBI is 0.89. IMPRESSION: 1. Normal ankle-brachial indices. Reviewed, dictated and finalized at location B.
--- OUTSIDE RECORDS SUMMARY | 2024-11-12 08:42 | XMS_ITS | Clinical Summary ---
Author Organization [facility] Address [address] [place] [address] Care Team Providers Care Director Power Name Role Phone Carroll Benz MD Primary Care Provider + [phone] Allergies Active Allergy Reactions Criticality Noted Date [...] 02/2017 Assessment & Plan (05/06/2019 2:28 PM INTERNET MARKETER): Encourage a weight loss program such as [...] on file Legal Sex Female 8:09 AM INTERNET MARKETER Gender Identity Not on file Sexual Orientation Not on file Obstetrics History Para Term AB IAB SAB Ectopic Multiple Livin g Live Births 1 1 Date Outcome GA Total Labor Labor/2nd/3rd Weight Sex Type Anes PTL Mary A1 A5 Name Clin U Y Last Filed Vital Signs Vital Sign Reading Time Taken Comments Blood Pressure 130/72 05/06/2019 1:31 PM INTERNET MARKETER Pulse 81 12/28/2014 3:00 PM CDT Temperature - - Respiratory Rate - - Oxygen Saturation - - Inhaled Oxygen Concentration - - Weight 108.4 kg (239 lb) 05/06/2019 1:31 PM INTERNET MARKETER Height 162.6 cm (5' 4) 05/06/2019 1:31 PM INTERNET MARKETER Body Mass Index 41.02 05/06/2019 1:31 PM INTERNET MARKETER Plan of Treatment Not on file Insurance [facility] [employer] Care Teams Director Power Relationship Specialty Start Date End Date Carroll Benz MD [address] [place] [address] PCP - General 12/28/14
--- OUTSIDE RECORDS SUMMARY | 2024-11-12 08:42 | XMS_ITS | Patient Health Record ---
Author Organization [facility] Address [address] [place], [place] [id number] Care Team Providers Care Industrial Hygenist Name Role Phone FRANCESCO CORREIA Unavailable [phone] Carroll Benz Unavailable Unavailable Allergies Allergen (clinical [...] tartrate 50 MG Oral Tablet *Reorder from [employer] for eRx and Interaction Alerts* 6 Active Gabapentin 300 MG Oral Capsule ORAL gabapentin 300 MG Oral CapsuleOriginal Medicationgabapentin 300 MG Oral Capsule *Reorder from [employer] for eRx and Interaction Alerts* 6 Active duloxetine 60 MG Delayed Release Oral Capsule ORAL duloxetine 60 MG Delayed Release Oral CapsuleOriginal Medicationduloxetine 60 MG Delayed Release Oral Capsule *Reorder from [employer] for eRx and Interaction Alerts* 6 Active levothyroxine sodium 0.125 MG Oral Tablet ORAL levothyroxine sodium 0.125 MG Oral TabletOriginal Medicationlevothyroxine sodium 0.125 MG Oral Tablet *Reorder from [employer] for eRx and Interaction Alerts* 6 Active omeprazole 10 MG Delayed Release Oral Capsule [Prilosec] ORAL omeprazole 10 MG Delayed Release Oral Capsule [Prilosec]Original Medicationomeprazole 10 MG Delayed Release Oral Capsule [Prilosec] *Reorder from [employer] for eRx and Interaction Alerts* 6 Active Plan Of Treatment No Information Insurance Providers Payer Name Payer Address Payer Phone Subscriber Number Group Number Insured Name Patient Relationship to Insured Coverage Start Date Coverage End Date Medicare Part B [place] [address] [place] [address] [id number] JYOTI CERNA Self - patient is the insured [facility] ([facility] ATTN CLAIMS [address] [place] [address] [id number] JYOTI CERNA Self - patient is the insured Medical (General) History Medical History History ICD Code acid reflux artificial joint neuropathy bronchitis Skin Disorder Back Trouble Heart Disease hypertension Surgical History Surgery Date(Month/Year) Hernia Hip Replacement Knee Surgery Carpal Tunnel release
--- OUTSIDE RECORDS SUMMARY | 2024-11-12 08:42 | XMS_ITS ---
Author Organization [facility] Address [address] [place], [place] [id number] Care Team Providers Care Police Cadet Name Role Phone RFANCESCO CORREIA Unavailable [phone] Carroll Benz Unavailable Unavailable SHAHAB MORENO Unavailable [phone] REASON FOR VISIT Ft better Encounters Encounter Location Date Provider Diagnosis [facility] [address] [place], [place] [id number] 05/16/2023 SHAHAB MORENO Plan Of Treatment No Information Progress Notes * JYOTI CERNA GDOB: 0 (64 yo F)Acc No.[id number]:05/16/2023 Patient: JYOTI MANN Provider: Ashwini MORENO :1960 A ge:62 Y S ex:Female Date:05/16/2023 Address:[address] [place], [place] [id number] Subjective: * Chief Complaints: * 1 . Ft better. * Medical History: Objective: * Vitals: Assessment: Plan: * Treatment: * Billing Information: * Visit Code: * Procedure Codes: * Electronic signature of GUY MORENO DPM on 11/12/2024 at 08:42 AM CDT Sign off status: Pending * Provider: Ashwini MORENO Date: 1 07/17/2022 Generated for Zari oviedo/Luis M/eTransmitting on: 0 11/12/2024 08:42 AM CDT
--- OUTSIDE RECORDS SUMMARY | 2024-11-12 08:42 | XMS_ITS | Referral Summary ---
Author Organization [facility] Address [address] [place] [address] Care Team Providers Care Web Production Artist Name Role Phone Carroll Benz MD Primary Care Provider + [phone] Allergies Active Allergy Reactions Criticality Noted Date [...] 02/2017 Assessment & Plan (05/06/2019 2:28 PM PATROL CONDUCTOR): Encourage a weight loss program such as [...] on file Legal Sex Female 8:09 AM PATROL CONDUCTOR Gender Identity Not on file Sexual Orientation Not on file Last Filed Vital Signs Vital Sign Reading Time Taken Comments Blood Pressure 130/72 05/06/2019 1:31 PM PATROL CONDUCTOR Pulse 81 12/28/2014 3:00 PM CDT Temperature - - Respiratory Rate - - Oxygen Saturation - - Inhaled Oxygen Concentration - - Weight 108.4 kg (239 lb) 05/06/2019 1:31 PM PATROL CONDUCTOR Height 162.6 cm (5' 4) 05/06/2019 1:31 PM PATROL CONDUCTOR Body Mass Index 41.02 05/06/2019 1:31 PM PATROL CONDUCTOR Plan of Treatment Not on file Insurance [facility] CHOICE PLUS [facility] HMO/PPO Address: [facility] [id number] [place] [address] Care Teams Web Production Artist Relationship Specialty Start Date End Date Carroll Benz MD [address] [place] [address] PCP - General 12/28/14
== END 2024-11-12 08:31 | disposition home or self-care (01) ==
PROVIDERS: PCP Internal Medicine; Visit Provider Podiatrist Foot & Ankle Surgery
DX: I73.89 Other specified peripheral vascular diseases (principal)
CPT/HCPCS: 93922

== ENCOUNTER 2024-11-13 11:35 | Outpatient (CLI) | payer MEDICARE, SELFPAY ==
--- NOTE | ~2024-11-13 | XR_ITS ---
EXAMINATION: XR chest 2V DATE: 11/13/2024 12:14 INDICATION: Shortness of breath, cough and congestion TECHNIQUE: frontal and lateral views of the chest were obtained. COMPARISON: Chest radiograph dated 11/16/2019 FINDINGS: The lungs are clear with no focal airspace opacities, pulmonary edema, pleural effusion or pneumothor ax. The cardiomediastinal silhouette is normal. Mild S-shaped curvature of the thoracic spine with mo derate spondylosis and bridging osteophytes at multiple levels consistent with diffuse idiopathic ske letal hyperostosis (DISH). IMPRESSION: 1. No acute cardiopulmonary disease. Reviewed, dictated and finalized at location A.
--- OUTSIDE RECORDS SUMMARY | 2024-11-13 11:39 | XMS_ITS ---
Author Organization [facility] Address [address] [place], [place] [id number] Care Team Providers Care Hr Payroll Coordinator Name Role Phone FRANCESCO CORREIA Unavailable [phone] Carroll Benz Unavailable Unavailable SHAHAB MORENO Unavailable [phone] REASON FOR VISIT Ft better Encounters Encounter Location Date Provider Diagnosis [facility] [address] [place], [place] [id number] 05/16/2023 SHAHAB MORENO Plan Of Treatment No Information Progress Notes * JYOTI CERNA GDOB: 0 (64 yo F)Acc No.[id number]:05/16/2023 Patient: JYOTI MANN Provider: Ashwini MORENO :1960 A ge:62 Y S ex:Female Date:05/16/2023 Address:[address] [place], [place] [id number] Subjective: * Chief Complaints: * 1 . Ft better. * Medical History: Objective: * Vitals: Assessment: Plan: * Treatment: * Billing Information: * Visit Code: * Procedure Codes: * Electronic signature of GUY MORENO DPM on 11/13/2024 at 11:39 AM CDT Sign off status: Pending * Provider: Ashwini MORENO Date: 1 07/17/2022 Generated for Zari oviedo/Luis M/eTransmitting on: 0 11/13/2024 11:39 AM CDT
--- OUTSIDE RECORDS SUMMARY | 2024-11-13 11:39 | XMS_ITS | Patient Health Record ---
Author Organization [facility] Address [address] [place], [place] [phone] Care Team Providers Care General Utility Machine Operator Name Role Phone FRANCESCO CORREIA Unavailable [phone] Carroll Benz Unavailable Unavailable Allergies Allergen (clinical [...] tartrate 50 MG Oral Tablet *Reorder from [employer] for eRx and Interaction Alerts* 6 Active Gabapentin 300 MG Oral Capsule ORAL gabapentin 300 MG Oral CapsuleOriginal Medicationgabapentin 300 MG Oral Capsule *Reorder from [employer] for eRx and Interaction Alerts* 6 Active duloxetine 60 MG Delayed Release Oral Capsule ORAL duloxetine 60 MG Delayed Release Oral CapsuleOriginal Medicationduloxetine 60 MG Delayed Release Oral Capsule *Reorder from [employer] for eRx and Interaction Alerts* 6 Active levothyroxine sodium 0.125 MG Oral Tablet ORAL levothyroxine sodium 0.125 MG Oral TabletOriginal Medicationlevothyroxine sodium 0.125 MG Oral Tablet *Reorder from [employer] for eRx and Interaction Alerts* 6 Active omeprazole 10 MG Delayed Release Oral Capsule [Prilosec] ORAL omeprazole 10 MG Delayed Release Oral Capsule [Prilosec]Original Medicationomeprazole 10 MG Delayed Release Oral Capsule [Prilosec] *Reorder from [employer] for eRx and Interaction Alerts* 6 Active Plan Of Treatment No Information Insurance Providers Payer Name Payer Address Payer Phone Subscriber Number Group Number Insured Name Patient Relationship to Insured Coverage Start Date Coverage End Date Medicare Part B [place] [address] [place] [address] [id number] JYOTI CERNA Self - patient is the insured [facility] ([facility]) ATTN CLAIMS [address] [place] [address] [id number] JYOTI CERNA Self - patient is the insured Medical (General) History Medical History History ICD Code acid reflux artificial joint neuropathy bronchitis Skin Disorder Back Trouble Heart Disease hypertension Surgical History Surgery Date(Month/Year) Hernia Hip Replacement Knee Surgery Carpal Tunnel release
--- OUTSIDE RECORDS SUMMARY | 2024-11-13 11:39 | XMS_ITS | Referral Summary ---
Author Organization [facility] Address [address] [place] [address] Care Team Providers Care Water Quality Manager Name Role Phone Carroll Benz MD Primary Care Provider + [phone] Allergies Active Allergy Reactions Criticality Noted Date [...] 02/2017 Assessment & Plan (05/06/2019 2:28 PM DRAGLINE OPERATOR): Encourage a weight loss program such as [...] on file Legal Sex Female 8:09 AM DRAGLINE OPERATOR Gender Identity Not on file Sexual Orientation Not on file Last Filed Vital Signs Vital Sign Reading Time Taken Comments Blood Pressure 130/72 05/06/2019 1:31 PM DRAGLINE OPERATOR Pulse 81 12/28/2014 3:00 PM CDT Temperature - - Respiratory Rate - - Oxygen Saturation - - Inhaled Oxygen Concentration - - Weight 108.4 kg (239 lb) 05/06/2019 1:31 PM DRAGLINE OPERATOR Height 162.6 cm (5' 4) 05/06/2019 1:31 PM DRAGLINE OPERATOR Body Mass Index 41.02 05/06/2019 1:31 PM DRAGLINE OPERATOR Plan of Treatment Not on file Insurance [facility] CHOICE PLUS Care Teams Water Quality Manager Relationship Specialty Start Date End Date Carroll Benz MD [address] [place] [address] PCP - General 12/28/14
--- OUTSIDE RECORDS SUMMARY | 2024-11-13 11:39 | XMS_ITS | Clinical Summary ---
Author Organization [facility] Address [address] [place] [address] Care Team Providers Care Spanish Interpreter Name Role Phone Carroll Benz MD Primary Care Provider + [phone] Allergies Active Allergy Reactions Criticality Noted Date [...] 02/2017 Assessment & Plan (05/06/2019 2:28 PM MANAGER BILINGUAL): Encourage a weight loss program such as [...] on file Legal Sex Female 8:09 AM MANAGER BILINGUAL Gender Identity Not on file Sexual Orientation Not on file Obstetrics History Para Term AB IAB SAB Ectopic Multiple Livin g Live Births 1 1 Date Outcome [place] Total Labor Labor/2nd/3rd Weight Sex Type Anes PTL Mary A1 A5 Name Clin U Y Last Filed Vital Signs Vital Sign Reading Time Taken Comments Blood Pressure 130/72 05/06/2019 1:31 PM MANAGER BILINGUAL Pulse 81 12/28/2014 3:00 PM CDT Temperature - - Respiratory Rate - - Oxygen Saturation - - Inhaled Oxygen Concentration - - Weight 108.4 kg (239 lb) 05/06/2019 1:31 PM MANAGER BILINGUAL Height 162.6 cm (5' 4) 05/06/2019 1:31 PM MANAGER BILINGUAL Body Mass Index 41.02 05/06/2019 1:31 PM MANAGER BILINGUAL Plan of Treatment Not on file Insurance [facility] CHOICE PLUS [facility] H[facility]/PPO Address: [facility] [id number] [place] [address] Care Teams Spanish Interpreter Relationship Specialty Start Date End Date Carroll Benz MD [address] [place] [address] PCP - General 12/28/14
[2024-11-13 12:16] LABS: Hematocrit 42.4 % (35.0-42.0); Hemoglobin 14.2 g/dL (11.7-13.8); Mean Corpuscular HGB Conc 33.5 g/dL (32-36); Mean Corpuscular Hemoglobin 27.4 pg (27.0-31.0); Mean Corpuscular Volume 81.7 fL (78.0-102.0); Mean Platelet Volume 8.8 fl (9.2-11.8); Platelet Count Result 344 K/mm3 (150-420); Red Blood Count 5.19 M/mm3 (4.20-5.40); Red Cell Distribution Width 13.3 % (11.6-14.4); White Blood Count 6.8 K/mm3 (4.8-10.8)
[2024-11-13 12:52] LABS: Strep Group A RT-PCR NOT DETECTED (Negative)
[2024-11-13 12:56] LABS: Influenza A QL RT-PCR Negative (Negative); Influenza B QL RT-PCR Negative (Negative); SARS-CoV-2 RNA PCR Negative (Negative)
[2024-11-13 12:57] LABS: RSV RNA, RT-PCR Positive (Negative)
== END 2024-11-13 11:36 | disposition home or self-care (01) ==
LOC: CHSLAB 11:37
PROVIDERS: PCP Internal Medicine; Visit Provider Internal Medicine
DX: R05.9 Cough, unspecified (principal); J06.9 Acute upper respiratory infection, unspecified
CPT/HCPCS: 36415; 71046; 85027; 87637; 87651

== ENCOUNTER 2025-01-06 08:59 | Outpatient (CLI) | payer MEDICARE, OTHER, SELFPAY ==
[2025-01-06 09:18] LABS: Hematocrit 40.7 % (35.0-42.0); Hemoglobin 13.5 g/dL (11.7-13.8); Mean Corpuscular HGB Conc 33.2 g/dL (32-36); Mean Corpuscular Hemoglobin 27.4 pg (27.0-31.0); Mean Corpuscular Volume 82.7 fL (78.0-102.0); Platelet Count Result 376 K/mm3 (150-420); Red Blood Count 4.92 M/mm3 (4.20-5.40); White Blood Count 7.1 K/mm3 (4.8-10.8)
--- OUTSIDE RECORDS SUMMARY | 2025-01-06 09:19 | XMS_ITS | Patient Health Record ---
Author Organization [facility] Address [address] [place], [place] [phone] Care Team Providers Care Automatic Die Cutting Machine Operator Name Role Phone FRANCESCO CORREIA Unavailable [phone] Carroll Benz Unavailable Unavailable Allergies Allergen (clinical [...] tartrate 50 MG Oral Tablet *Reorder from [employer] for eRx and Interaction Alerts* 6 Active Gabapentin 300 MG Oral Capsule ORAL gabapentin 300 MG Oral CapsuleOriginal Medicationgabapentin 300 MG Oral Capsule *Reorder from [employer] for eRx and Interaction Alerts* 6 Active duloxetine 60 MG Delayed Release Oral Capsule ORAL duloxetine 60 MG Delayed Release Oral CapsuleOriginal Medicationduloxetine 60 MG Delayed Release Oral Capsule *Reorder from [employer] for eRx and Interaction Alerts* 6 Active levothyroxine sodium 0.125 MG Oral Tablet ORAL levothyroxine sodium 0.125 MG Oral TabletOriginal Medicationlevothyroxine sodium 0.125 MG Oral Tablet *Reorder from [employer] for eRx and Interaction Alerts* 6 Active omeprazole 10 MG Delayed Release Oral Capsule [Prilosec] ORAL omeprazole 10 MG Delayed Release Oral Capsule [Prilosec]Original Medicationomeprazole 10 MG Delayed Release Oral Capsule [Prilosec] *Reorder from [employer] for eRx and Interaction Alerts* 6 Active Plan Of Treatment No Information Insurance Providers Payer Name Payer Address Payer Phone Subscriber Number Group Number Insured Name Patient Relationship to Insured Coverage Start Date Coverage End Date Medicare Part B [place] [address] [place] [address] [id number] JYOTI CERNA Self - patient is the insured [facility] ([facility]) ATTN CLAIMS [address] [place] [address] [id number] JYOTI CERNA Self - patient is the insured Medical (General) History Medical History History ICD Code acid reflux artificial joint neuropathy bronchitis Skin Disorder Back Trouble Heart Disease hypertension Surgical History Surgery Date(Month/Year) Hernia Hip Replacement Knee Surgery Carpal Tunnel release
--- OUTSIDE RECORDS SUMMARY | 2025-01-06 09:19 | XMS_ITS | Clinical Summary ---
Author Organization [facility] Address [address] [place] [address] Care Team Providers Care Supply Chain Procurement Manager Name Role Phone Carroll Benz MD Primary Care Provider + [phone] Allergies Active Allergy Reactions Criticality Noted Date [...] 02/2017 Assessment & Plan (05/06/2019 2:28 PM TUBER MACHINE OPERATOR HELPER): Encourage a weight loss program such as [...] on file Legal Sex Female 8:09 AM TUBER MACHINE OPERATOR HELPER Gender Identity Not on file Sexual Orientation Not on file Obstetrics History Para Term AB IAB SAB Ectopic Multiple Livin g Live Births 1 1 Date Outcome [place] Total Labor Labor/2nd/3rd Weight Sex Type Anes PTL Mary A1 A5 Name Clin U Y Last Filed Vital Signs Vital Sign Reading Time Taken Comments Blood Pressure 130/72 05/06/2019 1:31 PM TUBER MACHINE OPERATOR HELPER Pulse 81 12/28/2014 3:00 PM CDT Temperature - - Respiratory Rate - - Oxygen Saturation - - Inhaled Oxygen Concentration - - Weight 108.4 kg (239 lb) 05/06/2019 1:31 PM TUBER MACHINE OPERATOR HELPER Height 162.6 cm (5' 4) 05/06/2019 1:31 PM TUBER MACHINE OPERATOR HELPER Body Mass Index 41.02 05/06/2019 1:31 PM TUBER MACHINE OPERATOR HELPER Plan of Treatment Not on file Insurance [facility] CHOICE PLUS Care Teams Supply Chain Procurement Manager Relationship Specialty Start Date End Date Carroll Benz MD [address] [place] [address] PCP - General 12/28/14
[2025-01-06 09:22] LABS: Add Urine Microscopic? NO; Appearance Urine Clear (Clear); Glucose Urine UA Negative (Negative); Leukocyte Esterase Ur Negative LEU/UL (Negative); Nitrate Urine Negative (Negative); Specific Grav Ur 1.010 (1.010-1.020)
[2025-01-06 09:38] LABS: Hemoglobin A1C 6.7 % (<5.7)
[2025-01-06 09:44] LABS: Alanine Aminotransferase 29 U/L (6-35); Albumin Level 4.6 g/dL (3.5-5.1); Alkaline Phosphatase 77 U/L (38-126); Anion Gap 7 mmol/L (4-12); Aspartate Amino Transferase 29 U/L (14-36); Bilirubin,Total 0.7 mg/dL (0.2-1.3); Blood Urea Nitrogen 15 mg/dL (7-17); Calcium 10.2 mg/dL (8.4-10.2); Carbon Dioxide 31 mmol/L (22-30); Chloride 96 mmol/L (98-107); Cholesterol 184 mg/dL (0-200); Creatine Kinase 93 U/L (30-135); Estimated Glomerular Filt Rate > 60; Glucose 135 mg/dL (65-110); HDL Direct 44 mg/dL; Osmolality Calculated 280 mOsm/kg (285-295); Potassium 4.4 mmol/L (3.4-5.0); Sodium 134 mmol/L (137-145); Total Protein 7.3 g/dL (6.3-8.2); Triglycerides 342 mg/dL (<150)
[2025-01-06 10:01] LABS: Free T3 3.70 pg/mL (2.18-3.98); Free T4 Free Thyroxine 1.15 ng/dL (0.78-2.19)
[2025-01-06 10:15] LABS: Thyroid Stimulating Hormone 1.800 uIU/mL (0.465-4.680)
== END 2025-01-06 09:00 | disposition home or self-care (01) ==
PROVIDERS: PCP Internal Medicine; Visit Provider Internal Medicine
DX: I10 Essential (primary) hypertension (principal); E11.9 Type 2 diabetes mellitus without complications; E78.2 Mixed hyperlipidemia; E03.4 Atrophy of thyroid (acquired)
CPT/HCPCS: 36415; 80053; 80061; 81003; 82550; 83036; 84439; 84443; 84481; 85027